=== PATIENT | male | born 1995 | race Caucasian/White ===

== ENCOUNTER 2017-02-23 00:22 | Inpatient (IN) | payer MEDICAID ==
[2017-02-23] MEDS ORDERED: NS 0.9% 1000 ML* 1,000 ML IV ONE (00:42)
[2017-02-23] MEDS ORDERED: Naloxone* 0.4 MG/ML 1 ML VIAL IV PUSH ONE ×3 (00:46→01:24)
[2017-02-23] MEDS ORDERED: Naloxone* 0.4 MG/ML 10 ML VIAL ONE (01:08)
[2017-02-23 01:09] LABS: Hematocrit 37 % (42-52); Hemoglobin 11.9 g/dl (14.0-18.0); Mean Corpuscular HGB Conc 32 g/dl (31-36); Mean Corpuscular Hemoglobin 27 pg (27-31); Mean Corpuscular Volume 83 fL (80-94); Mean Platelet Volume 8 um3 (7.4-10.4); Red Blood Count 4.43 10^6/ul (4.0-5.4); Red Cell Distribution Width 15 % (10.5-15); White Blood Count 12.1 10^3/ul (3.5-10.8)
[2017-02-23 01:30] LABS: ALT 12 U/L (7-52); AST 19 U/L (13-39); Acetaminophen < 15 mcg/mL; Albumin 4.6 g/dL (3.2-5.2); Alcohol < 10 mg/dL (<10); Alkaline Phosphatase 67 U/L (34-104); Anion Gap 10 mmol/L (2-11); BUN/Creatinine Ratio 9.9 (8-20); Blood Urea Nitrogen 7 mg/dL (6-24); CO2 Carbon Dioxide 27 mmol/L (22-32); Calcium 9.5 mg/dL (8.6-10.3); Chloride 105 mmol/L (101-111); Creatine Kinase 501 U/L (10-223); EGFR African American 183.8 (>60); EGFR Non-African American 142.9 (>60); Globulin 2.7 g/dL (2-4); Glucose 70 mg/dL (70-100); Potassium 3.6 mmol/L (3.5-5.0); Salicylate < 2.50 mg/dL (<30); Sodium 142 mmol/L (133-145); Total Protein 7.3 g/dL (6.4-8.9)
[2017-02-23 01:56] LABS: Urine Bilirubin Negative (Negative); Urine Glucose Negative (Negative); Urine Nitrite Negative (Negative)
[2017-02-23] MEDS ORDERED: Naloxone* 2 MG in NS 0.9% 250 ML* 245 ML IV SCH (02:00)
[2017-02-23 02:10] LABS: Benzodiazepine Urine Screen None Detected (None Detect)
[2017-02-23] MEDS ORDERED: Iodixanol* (CONTRAST) 320 MG/ML 100 ML SDV IV ONE (02:29)
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
[2017-02-23] MEDS ORDERED: Acetaminophen TAB* 325 MG PO PRN (03:24)
[2017-02-23] MEDS: Omeprazole CAP* 20 MG PO SCH (05:32)
[2017-02-23] MEDS: Levothyroxine TAB* 125 MCG TAB PO SCH (05:32)
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
[2017-02-23] MEDS: NS 0.9% 1000 ML* 1,000 ML IV SCH ×2 (05:39→15:06)
[2017-02-23] MEDS: Albuterol HFA INHALER* 8 gm MDI INH PRN (06:20)
[2017-02-23] MEDS ORDERED: LORazepam INJ* 2 MG/ML 1 ML VIAL IV PUSH PRN (06:28)
[2017-02-23] MEDS ORDERED: LORazepam INJ* 2 MG/ML 1 ML VIAL IV PUSH ONE (06:30)
[2017-02-23] MEDS ORDERED: LORazepam INJ* 2 MG/ML 1 ML VIAL ONE (06:34)
--- NOTE | 2017-02-23 07:49 | RAD ---
INDICATION: Overdose COMPARISON: None. TECHNIQUE: Single AP portable view of the chest was obtained. FINDINGS: Image quality is compromised due to the relative inferiority of a portable chest x-ray. The heart and mediastinum exhibit normal size and contour. The lungs are grossly clear. There is no evidence of a large pleural effusion. Visualized bones are normal for the patient's age. IMPRESSION: No radiographic evidence for acute cardiopulmonary abnormality on this portable chest x-ray.
--- NOTE | 2017-02-23 07:50 | RAD ---
INDICATION: Altered mental status COMPARISON: Similar CT examination dated February 21, 2017 TECHNIQUE: Contiguous axial sections of the brain were obtained from the skull base to the vertex without contrast. FINDINGS: The ventricles, cisterns and sulci are within normal limits. The morales-white matter differentiation is adequately maintained and there is no sulcal effacement. No significant focal abnormality or mass effect is present. There is no evidence for intracranial hemorrhage. No significant focal osseous abnormality is present. The mastoid air cells are well aerated. There is mild mucosal thickening of the bilateral ethmoid air cells. IMPRESSION: Mild paranasal sinus mucosal disease without acute intracranial abnormality.
--- NOTE | 2017-02-23 07:56 | RAD ---
INDICATION: Right lower quadrant pain. Overdose. COMPARISON: CT chest/abdomen/pelvis February 21, 2017 TECHNIQUE: Axial source images were obtained from the hemidiaphragms to the symphysis pubis following administration of oral and intravenous contrast. 100 mL Visipaque 320 was utilized. Coronal and sagittal reconstructed images were acquired. Lung bases: The lung bases are clear. Liver: There is mild hepatomegaly. There are no masses.. Gallbladder: The gallbladder is contracted. Spleen: The spleen is normal in size. There are no masses. Pancreas: There is no focal pancreatic mass or ductal dilatation. Adrenal glands: There is no evidence of adrenal mass. Kidneys: The kidneys are normal in size and position. There are prompt nephrograms and there is prompt excretion bilaterally. There are no renal parenchymal masses. There is no evidence of nephrolithiasis. Adenopathy: There is no evidence of adenopathy by size criteria. Fluid collections: There is a small amount of free fluid in the dependent portion of the pelvis. Vessels:There are no significant atherosclerotic changes involving the aorta. There is no focal aneurysm. The iliac vessels are normal in caliber. The IVC appears normal. GI tract: The bowel is limited without oral contrast. The upper GI tract is unremarkable. There are no specific CT abnormalities lower GI tract. The appendix is normal. Pelvic organs: The prostate and seminal vesicles appear normal Bladder: There are no bladder masses. Abdominal and pelvic soft tissues: The extraperitoneal abdominal and pelvic soft tissues appear normal.. Osseous structures: There are no acute osseous findings. Other: None IMPRESSION: SMALL AMOUNT OF FREE FLUID IN THE DEPENDENT PORTION OF THE PELVIS REPRESENTS A NONSPECIFIC CT ABNORMALITY IN A YOUNG MALE. Mild hepatomegaly.
[2017-02-23] MEDS ORDERED: Influenza VAC *QUAD* 2017-18* 0.5 ML SYRINGE IM ONE (09:00)
[2017-02-23 09:42] LABS: Hematocrit 32 % (42-52); Hemoglobin 10.7 g/dl (14.0-18.0); Mean Corpuscular HGB Conc 33 g/dl (31-36); Mean Corpuscular Hemoglobin 27 pg (27-31); Mean Corpuscular Volume 81 fL (80-94); Mean Platelet Volume 9 um3 (7.4-10.4); Red Blood Count 3.98 10^6/ul (4.0-5.4); Red Cell Distribution Width 14 % (10.5-15); White Blood Count 9.8 10^3/ul (3.5-10.8)
[2017-02-23 10:05] LABS: Albumin 3.8 g/dL (3.2-5.2); BUN/Creatinine Ratio 9.7 (8-20); Calcium 8.8 mg/dL (8.6-10.3); EGFR African American 214.9 (>60); EGFR Non-African American 167.1 (>60); Globulin 2.2 g/dL (2-4); Potassium 3.6 mmol/L (3.5-5.0); Total Bilirubin 0.4 mg/dL (0.2-1.0)
[2017-02-23] MEDS: Divalproex DR TAB(*) 500 MG PO SCH ×2 (11:42→19:24)
--- NOTE | 2017-02-23 17:08 | PN ---
Subjective Date of Service: 02/23/17 Interval History: Patient is significantly sedated and unable to be interviewed in the morning. More alert in the afternoon, still confused and lethargic. Not oriented to time , but does know who he is and that he is in the hospital. Gives contradictory answers, stating he uses heroin twice daily, that he overdosed on his pills again, but then denies it. States he is too hot and is sweating profusely. Patient complains of a sore throat without other symptoms. Patient endorses sick contacts but states that "everyone around me is sick" Family History: Unchanged from Admission Social History: Unchanged from Admission Past Medical History: Unchanged from Admission Objective Active Medications: Acetaminophen (Tylenol Tab*) 650 mg PO Q4H PRN PRN Reason: FEVER/PAIN Albuterol (Ventolin Hfa Inhaler*) 2 puff INH Q4H PRN PRN Reason: SOB/WHEEZING Last Admin: 02/23/17 06:20 Dose: 2 puff Divalproex Sodium (Depakote Dr Tab(*)) 500 mg PO Q12HR [facility] Last Admin: 02/23/17 11:42 Dose: 500 mg Sodium Chloride (Ns 0.9% 1000 Ml*) 1,000 mls @ 100 mls/hr IV PER RATE [facility] Last Admin: 02/23/17 15:06 Dose: 100 mls/hr Levothyroxine Sodium (Synthroid Tab*) 125 mcg PO DAILY@0600 [facility] Last Admin: 02/23/17 05:32 Dose: 125 mcg Lorazepam (Ativan Inj*) 1 mg IV PUSH Q6H PRN PRN Reason: ANXIETY Omeprazole (Prilosec Cap*) 20 mg PO DAILY@0600 [facility] Last Admin: 02/23/17 05:32 Dose: 20 mg Throat Lozenges (Chloraseptic Corinna*) 1 corinna PO Q6H PRN PRN Reason: SORE THROAT Vital Signs 02/23/17 02/23/17 02/23/17 03:30 04:00 06:17 Temperature 98.2 F Pulse Rate 99 99 92 Respiratory 18 Rate Blood Pressure 121/73 117/96 145/84 (mmHg) O2 Sat by Pulse 100 98 98 Oximetry 02/23/17 02/23/17 02/23/17 06:25 06:30 06:33 Temperature Pulse Rate 118 122 Respiratory 32 20 Rate Blood Pressure 165/80 (mmHg) O2 Sat by Pulse 100 100 Oximetry 02/23/17 02/23/17 02/23/17 07:25 08:00 08:09 Temperature 100.9 F Pulse Rate 121 Respiratory 18 20 16 Rate Blood Pressure 132/88 (mmHg) O2 Sat by Pulse 98 Oximetry 02/23/17 02/23/17 12:09 15:24 Temperature 99.4 F 100.1 F Pulse Rate 98 107 Respiratory 20 20 Rate Blood Pressure 104/43 111/51 (mmHg) O2 Sat by Pulse 99 99 Oximetry Oxygen Devices in Use Now: None Appearance: Patient is a 21yo male who appears stated age and is slumped in the bed in NAD. Eyes: No Scleral Icterus, PERRLA Ears/Nose/Mouth/Throat: NL Teeth, Lips, Gums Neck: NL Appearance and Movements; NL JVP, Trachea Midline Respiratory: Symmetrical Chest Expansion and Respiratory Effort, Clear to Auscultation Cardiovascular: NL Sounds; No Murmurs; No JVD, No Edema, - - Tachycardic, regular. Abdominal: NL Sounds; No Tenderness; No Distention, No Hepatosplenomegaly Lymphatic: No Cervical Adenopathy Extremities: No Edema Skin: No Rash or Ulcers, No Nodules or Sclerosis Neurological: - - CN II-XII intact. Result Diagrams: 02/23/17 09:16 02/23/17 09:16 Additional Lab and Data: Lab Results Assess/Plan/Problems-Billing Assessment: Patient is a 21yo male with a PHM significant for TBI with skull plate and developmental delay, hypothyroidism, Asthma, Seizure disorder, Schizophrenia, ADHD and Bipolar disorder who presented unresponsive to the ED last night. Patient is a poor and unreliable historian but states that he took many medications and used multiple illicit drugs that he tested negative for. - Patient Problems (1) Altered mental status Current Visit: Yes Status: Acute Code(s): R41.82 - ALTERED MENTAL STATUS, UNSPECIFIED SNOMED Code(s): 564891821 Comment: Patient's mental status has improved but was given ativan overnight for an apparent anxiety attack and was given ativan which sedated him again. Patient's mental status improved throughout the day and he continued to be confused in the afternoon but was more alert and cooperative. Will continue to monitor. Patient became more tachycardic and febrile through the morning with significantly depressed mental status. Concern for NMS but decreased CK and no rigidity. Olanzapine level pending. May be due to URI as patient also has a sore throat. (2) Mood disorder Current Visit: No Status: Acute Priority: High Onset Date: 05/05/15 Comment: Continue depakote for mood stabilization and seizure prophylaxis. Hold Zyprexa and zoloft pending mental status normalization. Psychiatry consulted for recommendations for fdc car and short term medications to prevent self injurious behavior and functioning in the community. (3) Hypothyroidism Current Visit: No Status: Acute Code(s): E03.9 - HYPOTHYROIDISM, UNSPECIFIED SNOMED Code(s): 62305897 Comment: Increased TSH, likely due to patient not taking medication. Would recommend rechecking in 4-6 weeks. (4) Polysubstance overdose Current Visit: No Status: Acute Code(s): T50.901A - POISONING BY UNSP DRUG/ MEDS/BIOL SUBST, ACCIDENTAL, INIT SNOMED Code(s): 53527725 Comment: Patient endorses multiple substance abuse, but tests negative for illicit drugs and valproic acid level is 17. No signs of IV drug use on skin. Blood cultures drawn for possible bacteremia. No suicidal ideation at endorsed at this time. (5) Seizure disorder Current Visit: No Status: Acute Code(s): G40.909 - EPILEPSY, UNSP, NOT INTRACTABLE, WITHOUT STATUS EPILEPTICUS SNOMED Code(s): 261212630 Comment: Continue depakote, EEG results pending. Depakote level 17 which is significantly below therapeutic range. (6) DVT prophylaxis Current Visit: No Status: Acute Code(s): DTS9933 - SNOMED Code(s): 133748988 Comment: Low risk ambulation (7) Full code status Current Visit: No Status: Acute Code(s): Z78.9 - OTHER SPECIFIED HEALTH STATUS SNOMED Code(s): 715217629 Status and Disposition: Patient is admitted inpatient. LOS estimated at 1-2 days.
[2017-02-23] MEDS: Acetaminophen TAB* 325 MG PO PRN (19:23)
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
[2017-02-23] MEDS: Benzocaine/Menthol LOZ* 1 LOZENGE PO PRN (22:29)
[2017-02-24] MEDS: NS 0.9% 1000 ML* 1,000 ML IV SCH ×3 (01:16→20:43)
[2017-02-24] MEDS: Omeprazole CAP* 20 MG PO SCH (05:08)
[2017-02-24] MEDS: Levothyroxine TAB* 125 MCG TAB PO SCH (05:08)
[2017-02-24] MEDS: Benzocaine/Menthol LOZ* 1 LOZENGE PO PRN (06:20)
[2017-02-24 06:54] LABS: Albumin 3.2 g/dL (3.2-5.2); BUN/Creatinine Ratio 16.4 (8-20); Calcium 8.3 mg/dL (8.6-10.3); EGFR Non-African American 170.3 (>60); Globulin 1.9 g/dL (2-4); Potassium 3.9 mmol/L (3.5-5.0); Total Bilirubin 0.2 mg/dL (0.2-1.0); Total Protein 5.1 g/dL (6.4-8.9)
[2017-02-24] MEDS: Divalproex DR TAB(*) 500 MG PO SCH (08:15)
[2017-02-24 08:27] LABS: Hematocrit 32 % (42-52); Hemoglobin 10.7 g/dl (14.0-18.0); Mean Corpuscular HGB Conc 33 g/dl (31-36); Mean Corpuscular Hemoglobin 27 pg (27-31); Mean Corpuscular Volume 81 fL (80-94); Mean Platelet Volume 8 um3 (7.4-10.4); Red Blood Count 3.98 10^6/ul (4.0-5.4); Red Cell Distribution Width 14 % (10.5-15); White Blood Count 9.1 10^3/ul (3.5-10.8)
[2017-02-24] MEDS ORDERED: LORazepam INJ* 2 MG/ML 1 ML VIAL ONE ×3 (13:12→13:23)
[2017-02-24] MEDS ORDERED: Haloperidol INJ IV/IM* 5 MG/ML AMP ONE (13:13)
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
[2017-02-24 15:05] LABS: Magnesium 1.7 mg/dL (1.9-2.7)
[2017-02-24] MEDS ORDERED: Magnesium Sulfate 2 GM IV* 2 GM/50 ML BAG IVPB ONE (15:30)
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
[2017-02-24] MEDS: LORazepam INJ* 2 MG/ML 1 ML VIAL IV PUSH PRN (21:44)
--- NOTE | 2017-02-25 02:54 | EEG ---
ELECTROENCEPHALOGRAM REPORT: DATE OF STUDY: 02/24/17 LOCATION: He is inpatient in [facility]. REFERRING PROVIDER: Pepito Carrillo MD CLINICAL HISTORY: History of traumatic brain injury, the patient was brought in unresponsive after a possible drug abuse. There is a history of seizure disorder and schizophrenia. MEDICATIONS: Include Depakote, lorazepam, Narcan. EEG DESCRIPTION: This 16-channel EEG is remarkable for background rhythms consisting of vertex sharp activity and parasagittal sleep spindles, which are better formed on the right hemisphere than the left. The patient is asleep, but wakes with attenuation of stage 2 sleep features and low voltage fast activity seen bifrontally. At times, there is an alpha rhythm posteriorly at about 9 cycles per second, which is of low abundance. Most of the time, the patient drowses and sleeps during the recording. Activation procedures are not attempted. There are no focal or epileptiform discharges. INTERPRETATION: Asymmetrical sleep rhythms with perhaps better formed stage 2 sleep waveforms in the right hemisphere, but no epileptiform discharges or other significant abnormalities. [id number]/[facility] #: [id number] CORY
--- NOTE | 2017-02-25 04:59 | EEG ---
ELECTROENCEPHALOGRAM REPORT: DATE OF STUDY: 02/24/17 LOCATION: He is in ICU bed 5. REFERRING PROVIDER: EDUARDO Pyle CHIEF COMPLAINT: History of head injury, psychosis, possibly epilepsy. Recent agitation and possible seizure. MEDICATIONS: Include: 1. Lorazepam. 2. Haloperidol. 3. Keppra. 4. Depakote. 5. Synthroid. EEG DESCRIPTION: This 16-channel EEG is remarkable for background rhythms consisting of an 8 cycles per second posterior alpha rhythm which is symmetric and suppressed by eye opening. The patient drowses and falls asleep easily following into stage 2 sleep with parasagittal sleep spindles and vertex sharp waves. The patient sleeps for the majority of the recording, but is awaken intermittently by the distribution field technician. There are no focal, lateralized, or epileptiform abnormalities. INTERPRETATION: Normal awake and a sleep EEG. [id number]/[facility] [place] #: [id number] MTDTay
[2017-02-25 05:51] LABS: Hematocrit 33 % (42-52); Hemoglobin 10.7 g/dl (14.0-18.0); Mean Corpuscular HGB Conc 33 g/dl (31-36); Mean Corpuscular Hemoglobin 27 pg (27-31); Mean Corpuscular Volume 81 fL (80-94); Mean Platelet Volume 8 um3 (7.4-10.4); Red Blood Count 4.02 10^6/ul (4.0-5.4); Red Cell Distribution Width 14 % (10.5-15); White Blood Count 8.6 10^3/ul (3.5-10.8)
[2017-02-25 06:06] LABS: Albumin 3.3 g/dL (3.2-5.2); BUN/Creatinine Ratio 15.5 (8-20); Calcium 8.4 mg/dL (8.6-10.3); EGFR African American 232.1 (>60); EGFR Non-African American 180.5 (>60); Globulin 2.3 g/dL (2-4); Potassium 3.6 mmol/L (3.5-5.0); Total Bilirubin 0.3 mg/dL (0.2-1.0); Total Protein 5.6 g/dL (6.4-8.9)
[2017-02-25] MEDS: Omeprazole CAP* 20 MG PO SCH (06:14)
[2017-02-25] MEDS: Levothyroxine TAB* 125 MCG TAB PO SCH (06:14)
[2017-02-25] MEDS: NS 0.9% 1000 ML* 1,000 ML IV SCH (06:25)
[2017-02-25] MEDS ORDERED: OLANzapine TAB*ODT* 5 MG PO SCH (09:00)
[2017-02-25] MEDS ORDERED: Potassium Chlor TAB* 20 MEQ TAB.ER PO ONE (09:01)
[2017-02-25 09:21] LABS: Magnesium 1.8 mg/dL (1.9-2.7)
[2017-02-25] MEDS ORDERED: Magnesium Sulfate 2 GM IV* 2 GM/50 ML BAG IVPB ONE (09:27)
[2017-02-25 15:47] LABS: HIV Index 1 0.11 Index
[2017-02-25] MEDS ORDERED: Mouth Piece, Nicotine* 1 EACH CARTRIDGE INH PRN (17:01)
[2017-02-25] MEDS ORDERED: Nicotine Inhaler* 10 MG AMP INH PRN (17:01)
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
[2017-02-25] MEDS: risperiDONE TAB* 2 MG PO SCH (18:00)
[2017-02-25] MEDS: Albuterol HFA INHALER* 8 gm MDI INH PRN (21:17)
[2017-02-25] MEDS: Mometasone/Formoter 100/5 MDI INH SCH (22:16)
[2017-02-25] MEDS: LORazepam INJ* 2 MG/ML 1 ML VIAL IV PUSH PRN (22:35)
[2017-02-26] MEDS: Albuterol HFA INHALER* 8 gm MDI INH PRN ×3 (01:27→19:46)
[2017-02-26 05:17] LABS: Hematocrit 33 % (42-52); Hemoglobin 10.8 g/dl (14.0-18.0); Mean Corpuscular HGB Conc 33 g/dl (31-36); Mean Corpuscular Hemoglobin 27 pg (27-31); Mean Corpuscular Volume 81 fL (80-94); Mean Platelet Volume 8 um3 (7.4-10.4); Red Blood Count 4.08 10^6/ul (4.0-5.4); Red Cell Distribution Width 14 % (10.5-15); White Blood Count 8.3 10^3/ul (3.5-10.8)
[2017-02-26 05:32] LABS: Albumin 3.5 g/dL (3.2-5.2); BUN/Creatinine Ratio 13.8 (8-20); Calcium 8.8 mg/dL (8.6-10.3); EGFR African American 203.5 (>60); EGFR Non-African American 158.3 (>60); Globulin 2.5 g/dL (2-4); Potassium 3.7 mmol/L (3.5-5.0); Total Bilirubin 0.2 mg/dL (0.2-1.0)
[2017-02-26] MEDS: Levothyroxine TAB* 125 MCG TAB PO SCH (06:12)
[2017-02-26] MEDS: Omeprazole CAP* 20 MG PO SCH (06:12)
[2017-02-26 07:37] LABS: Magnesium 1.7 mg/dL (1.9-2.7)
[2017-02-26] MEDS: Mometasone/Formoter 100/5 MDI INH SCH ×2 (08:29→19:47)
[2017-02-26] MEDS ORDERED: Magnesium Sulfate 2 GM IV* 2 GM/50 ML BAG IVPB ONE (10:25)
[2017-02-26] MEDS: Magnesium Chloride EC TAB* 64 MG PO SCH (13:53)
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
[2017-02-26] MEDS: risperiDONE TAB* 2 MG PO SCH (17:53)
[2017-02-26] MEDS: Haloperidol INJ IV/IM* 5 MG/ML AMP IM PRN (21:49)
[2017-02-27] MEDS: Omeprazole CAP* 20 MG PO SCH (04:52)
[2017-02-27] MEDS: Levothyroxine TAB* 125 MCG TAB PO SCH (04:52)
[2017-02-27] MEDS: Acetaminophen TAB* 325 MG PO PRN (04:52)
[2017-02-27] MEDS: Mometasone/Formoter 100/5 MDI INH SCH ×2 (07:50→21:20)
[2017-02-27] MEDS: Magnesium Chloride EC TAB* 64 MG PO SCH (08:40)
[2017-02-27] MEDS: Benzocaine/Menthol LOZ* 1 LOZENGE PO PRN (11:04)
[2017-02-27] MEDS ORDERED: Nicotine PATCH 21 MG/24 HR* PATCH TRANSDERM SCH (14:00)
--- NOTE | 2017-02-27 15:23 | PN ---
Subjective - Subjective Service Type: 33051 Hosp care 15 min low complexity Subjective: Saw patient on bed side. He continues to report that he is seeing things, hearing voices but unwilling to talk about any details including what when etc. He says all scary staffs with inappropriate smile. Denies SI/HI. Wants to know when he was coming to the [facility]. Pacing around talking to nursing staffs. Doesn't appear to be in any distress. Objective - Appearance Appearance: Healthy Appearing Dysmorphic Features: No Hygiene: Normal Grooming: Fairly Well Kept - Behavior Psychomotor Activities: Abnormal-Increased Exhibits Abnormal Movement: No - Attitude and Relatedness Attitude and Relatedness: Manipulative Eye Contact: Fair - Speech Quality: Unpressured Latencies: Normal Quantity: Terse - Mood Patient's Decription of Mood: "Fine" - Affect Observed Affect: Non-labile - Thought Process Patient's Thought Process: Circumstantial Thought Content: No Passive Wish, No Suicidal Planning, No Homicidal Ideation, No Paranoid Ideation - Sensorium Experiencing Hallucinations: Yes Type of Hallucinations: Visual: Yes, Auditory: Yes, Command: No - Level of Consciousness Level of Consciousness: Alert Orientation: Yes Intact, Yes Orientated to Time, Yes Orientated to Place, Yes Orientated to Person - Impulse Control Impulse Control: Tenuous - Insight and Judgement Insight and Judgement: Poor - Group Participation Particating in Group Activities: No - Medication Management Medication Management Adherence: Yes Assessment - Assessment Merits Inpatient Hospitalization: For Ongoing Evaluation, Pending Safe DC Plan Inpatient DSM-IV Dx: Impulse Control DO NOS Plan - Plan Treatment Plan: Name: SHERON HADDAD Birthdate: 1995 [id number] Medications: Current Medications Acetaminophen (Tylenol Tab*) 650 mg PO Q4H PRN PRN Reason: FEVER/PAIN Last Admin: 02/27/17 04:52 Dose: 650 mg Albuterol (Ventolin Hfa Inhaler*) 2 puff INH Q4H PRN PRN Reason: SOB/WHEEZING Last Admin: 02/26/17 19:46 Dose: 2 puff Device (Nicotine Mouth Piece*) 1 each INH .USE WITH NICOTROL PRN PRN Reason: CRAVING Last Admin: 02/25/17 20:09 Dose: 1 each Haloperidol Lactate (Haldol Inj Iv/Im*) 5 mg IM Q6H PRN PRN Reason: AGITATION Last Admin: 02/26/17 21:49 Dose: 5 mg Levothyroxine Sodium (Synthroid Tab*) 125 mcg PO DAILY@0600 [facility] Last Admin: 02/27/17 04:52 Dose: 125 mcg Lorazepam (Ativan Inj*) 1 mg IV PUSH Q6H PRN PRN Reason: AGITATION/ANXIETY Last Admin: 02/25/17 22:35 Dose: 1 mg Magnesium Chloride (Slow Mag Ec Tab*) 64 mg PO DAILY [facility] Last Admin: 02/27/17 08:40 Dose: 64 mg Mometasone Furoate/Formoterol Fumar (Dulera 100/5 Mdi*) 2 puff INH BID [facility] Last Admin: 02/27/17 07:50 Dose: 2 puff Nicotine (Nicotine Inhaler*) 10 mg INH Q2H PRN PRN Reason: CRAVING Last Admin: 02/25/17 20:10 Dose: 10 mg Nicotine (Nicotine Patch 21 Mg/24 Hr*) 1 patch TRANSDERM DAILY [facility] Last Admin: 02/27/17 14:49 Dose: 1 patch Omeprazole (Prilosec Cap*) 20 mg PO DAILY@0600 [facility] Last Admin: 02/27/17 04:52 Dose: 20 mg Pharmacy Profile Note (Nicotine Patch Removal Note*) 1 note FOLLOW UP 0600 [facility] Risperidone (Risperdal*) 2 mg PO QPM [facility] Last Admin: 02/26/17 17:53 Dose: 2 mg Throat Lozenges (Chloraseptic Corinna*) 1 corinna PO Q6H PRN PRN Reason: SORE THROAT Last Admin: 02/27/17 11:04 Dose: 1 corinna - Discharge Plan Discharge Plan: Outpatient Follow Up Outpatient Program: TBD
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
[2017-02-27] MEDS: Nicotine GUM* 2 MG PO PRN (20:06)
[2017-02-27] MEDS: risperiDONE TAB* 2 MG PO SCH (20:06)
[2017-02-27] MEDS: Albuterol HFA INHALER* 8 gm MDI INH PRN (21:21)
[2017-02-28] MEDS: Nicotine GUM* 2 MG PO PRN (00:11)
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
[2017-02-28] MEDS: Omeprazole CAP* 20 MG PO SCH (05:44)
[2017-02-28] MEDS: Levothyroxine TAB* 125 MCG TAB PO SCH (05:44)
[2017-02-28] MEDS ORDERED: Nicotine Patch Removal NOTE FOLLOW UP SCH (06:00)
[2017-02-28] MEDS: Mometasone/Formoter 100/5 MDI INH SCH ×2 (07:46→19:56)
[2017-02-28 09:42] LABS: Calcium 9.5 mg/dL (8.6-10.3); EGFR African American 186.8 (>60); EGFR Non-African American 145.3 (>60); Magnesium 1.7 mg/dL (1.9-2.7)
[2017-02-28] MEDS ORDERED: Magnesium Oxide TAB* 400 MG PO ONE (10:15)
[2017-02-28] MEDS: Magnesium Chloride EC TAB* 64 MG PO SCH (10:43)
[2017-02-28] MEDS ORDERED: LORazepam TAB(*) 1 MG PO PRN (11:12)
[2017-02-28] MEDS ORDERED: Paliperidone SUSTENNA* 234 MG/1.5 ML IM ONE (15:21)
--- NOTE | 2017-02-28 15:34 | CONSULT ---
Identification - Patient Identification Reason for Psychiatric Consultation: Suicidal Ideation, Homicidal Ideation, Violent Behavior -: Patient is a 21 year old, M admitted on 02/24/17. - MHU Identification Employment Status: Disabled Hx Psychiatric Hospitalization: Yes History - Objective HPI: Michael is in good spirits when I enter his room. He is watching a cartoon movie and laughing. He denies SI or HI but states "I still need to come down with you on the second floor because of all the things I'm seeing and hearing. They're people and they tell me to do bad things." His affect is not congruent with these statements. This clinician spoke both with the web content & social media manager on the service, Joseline Garay, and Cindi Magana, Director of Clinical Resource Management about placement options. A SPOE application has been filed, but there is no certainty about how long a supported apartment or snf would take to materialize. In the meantime, Michael is tolerating risperidone therapy well and is agreeable with long-acting injectable antipsychotic medication. Lab Results: Laboratory Tests 02/24/17 02/24/17 02/24/17 08:13 08:13 08:13 WBC 9.1 RBC 3.98 L Hgb 10.7 L Hct 32 L MCV 81 MCH 27 MCHC 33 RDW 14 Plt Count 155 MPV 8 Neut % (Auto) 63.0 Lymph % (Auto) 21.7 L Wallace % (Auto) 12.5 H Eos % (Auto) 2.2 Baso % (Auto) 0.6 Absolute Neuts (auto) 5.7 Absolute Lymphs (auto) 2.0 Absolute Monos (auto) 1.1 H Absolute Eos (auto) 0.2 Absolute Basos (auto) 0.1 Absolute Nucleated RBC 0 Nucleated RBC % 0 Sodium Potassium Chloride Carbon Dioxide Anion Gap BUN Creatinine Est GFR ( Amer) Est GFR (Non-Af Amer) BUN/Creatinine Ratio Glucose Calcium Magnesium Total Bilirubin AST ALT Alkaline Phosphatase Ammonia 97 H Total Protein Albumin Globulin Albumin/Globulin Ratio Valproic Acid Hep B Core Total Ab Hepatitis C Antibody Nonreactive HIV 1&2 Antibody Nonreactive 02/24/17 02/24/17 02/25/17 08:13 14:35 05:34 WBC RBC Hgb Hct MCV MCH MCHC RDW Plt Count MPV Neut % (Auto) Lymph % (Auto) Wallace % (Auto) Eos % (Auto) Baso % (Auto) Absolute Neuts (auto) Absolute Lymphs (auto) Absolute Monos (auto) Absolute Eos (auto) Absolute Basos (auto) Absolute Nucleated RBC Nucleated RBC % Sodium Potassium Chloride Carbon Dioxide Anion Gap BUN Creatinine Est GFR ( Amer) Est GFR (Non-Af Amer) BUN/Creatinine Ratio Glucose Calcium Magnesium 1.7 L Total Bilirubin AST ALT Alkaline Phosphatase Ammonia 106 H Total Protein Albumin Globulin Albumin/Globulin Ratio Valproic Acid 65.0 Hep B Core Total Ab Negative Hepatitis C Antibody HIV 1&2 Antibody 02/25/17 02/25/17 02/26/17 05:34 05:34 05:06 WBC 8.6 8.3 RBC 4.02 4.08 Hgb 10.7 L 10.8 L Hct 33 L 33 L MCV 81 81 MCH 27 27 MCHC 33 33 RDW 14 14 Plt Count 164 202 MPV 8 8 Neut % (Auto) 65.6 51.8 Lymph % (Auto) 21.1 L 35.1 Wallace % (Auto) 10.1 H 9.4 H Eos % (Auto) 2.7 2.9 Baso % (Auto) 0.5 0.8 Absolute Neuts (auto) 5.6 4.3 Absolute Lymphs (auto) 1.8 2.9 Absolute Monos (auto) 0.9 H 0.8 Absolute Eos (auto) 0.2 0.2 Absolute Basos (auto) 0 0.1 Absolute Nucleated RBC 0.01 0 Nucleated RBC % 0.1 0 Sodium 138 Potassium 3.6 Chloride 107 Carbon Dioxide 27 Anion Gap 4 BUN 9 Creatinine 0.58 L Est GFR ( Amer) 232.1 Est GFR (Non-Af Amer) 180.5 BUN/Creatinine Ratio 15.5 Glucose 91 Calcium 8.4 L Magnesium 1.8 L Total Bilirubin 0.30 AST 17 ALT 12 Alkaline Phosphatase 39 Ammonia Total Protein 5.6 L Albumin 3.3 Globulin 2.3 Albumin/Globulin Ratio 1.4 Valproic Acid Hep B Core Total Ab Hepatitis C Antibody HIV 1&2 Antibody 02/26/17 02/26/17 02/27/17 05:06 05:06 05:49 WBC RBC Hgb Hct MCV MCH MCHC RDW Plt Count MPV Neut % (Auto) Lymph % (Auto) Wallace % (Auto) Eos % (Auto) Baso % (Auto) Absolute Neuts (auto) Absolute Lymphs (auto) Absolute Monos (auto) Absolute Eos (auto) Absolute Basos (auto) Absolute Nucleated RBC Nucleated RBC % Sodium 138 Potassium 3.7 Chloride 104 Carbon Dioxide 27 Anion Gap 7 BUN 9 Creatinine 0.65 L Est GFR ( Amer) 203.5 Est GFR (Non-Af Amer) 158.3 BUN/Creatinine Ratio 13.8 Glucose 92 Calcium 8.8 Magnesium 1.7 L 1.6 L Total Bilirubin 0.20 AST 16 ALT 12 Alkaline Phosphatase 56 Ammonia 71 H Total Protein 6.0 L Albumin 3.5 Globulin 2.5 Albumin/Globulin Ratio 1.4 Valproic Acid Hep B Core Total Ab Hepatitis C Antibody HIV 1&2 Antibody 02/27/17 02/28/17 05:49 09:16 WBC RBC Hgb Hct MCV MCH MCHC RDW Plt Count MPV Neut % (Auto) Lymph % (Auto) Wallace % (Auto) Eos % (Auto) Baso % (Auto) Absolute Neuts (auto) Absolute Lymphs (auto) Absolute Monos (auto) Absolute Eos (auto) Absolute Basos (auto) Absolute Nucleated RBC Nucleated RBC % Sodium 136 Potassium 4.0 Chloride 102 Carbon Dioxide 28 Anion Gap 6 BUN 14 Creatinine 0.70 Est GFR ( Amer) 186.8 Est GFR (Non-Af Amer) 145.3 BUN/Creatinine Ratio 20.0 Glucose 93 Calcium 9.5 Magnesium 1.7 L Total Bilirubin AST ALT Alkaline Phosphatase Ammonia 67 H Total Protein Albumin Globulin Albumin/Globulin Ratio Valproic Acid Hep B Core Total Ab Hepatitis C Antibody HIV 1&2 Antibody Exam Appearance: Healthy Appearing Hygiene: Normal Grooming: Fairly Well Kept Psychomotor Activities: Abnormal-Increased Exhibits Abnormal Movement: No Attitude and Relatedness: Manipulative Eye Contact: Fair - Speech Quality: Unpressured Latencies: Normal Quantity: Terse Patient's Decription of Mood: "Fine" Observed Affect: Non-labile Affect Consistent with: Euthymia Patient's Thought Process: Circumstantial Thought Content: No Passive Wish, No Suicidal Planning, No Homicidal Ideation, No Paranoid Ideation Experiencing Hallucinations: Yes Type of Hallucinations: Visual: Yes, Auditory: Yes, Command: No Level of Consciousness: Alert Orientation: Yes Intact, Yes Orientated to Time, Yes Orientated to Place, Yes Orientated to Person Impulse Control: Tenuous Insight and Judgement: Poor Impression - Impression Clinical Impression: 21 y.o. single, homeless male, recently released from incarceration at [facility] (02/18/17) with a history of developmental delay, TBI, impulse control problems, putative schizophrenia and bipolar conditions and substance abuse, as well as factitious disorder who is now admitted to the medical service for the second time in 3 days due to intentional overdose on unspecified medications. Although he denied all psychiatric symptoms as recently as the first february, he is now endorsing SI, HI, AH and VH, is making threatening statements to staff and seems invested in being admitted to the BSU for likely secondary gain. Merits Inpatient Hospitalization: No Problem List - MHU Problems Type of Problem: Impulse Control Status of Problem: Active Plan - Treatment Plan Treatment Plan: The patient represents numerous behavioral and dispositional problems to the team. He is homeless and lacks an readily achievable placement options. Given his intellectual problems, he is inappropriate for BSU care as he would not benefit from milieu programming. His impulsivity warrants med management, however, he already more than proven his inability to handle oral medications safely. Long acting injectable neuroleptic therapy would be helpful. He has started a trial of oral risperidone, of which paliperidone is a metabolite. We will start a trial of paliperidone Sustenna 234mg IM times one. If well- tolerated, he can receive a booster dose as early as this Tuesday (03/04). For now, we will keep him on 1:1 obs, although I don't believe him to necessarily be dangerous to anyone. Psychiatry will continue to follow. Continued Medication Management: Start Medication Medications: Current Medications Acetaminophen (Tylenol Tab*) 650 mg PO Q4H PRN PRN Reason: FEVER/PAIN Last Admin: 02/27/17 04:52 Dose: 650 mg Albuterol (Ventolin Hfa Inhaler*) 2 puff INH Q4H PRN PRN Reason: SOB/WHEEZING Last Admin: 02/27/17 21:21 Dose: 2 puff Device (Nicotine Mouth Piece*) 1 each INH .USE WITH NICOTROL PRN PRN Reason: CRAVING Last Admin: 02/25/17 20:09 Dose: 1 each Haloperidol Lactate (Haldol Inj Iv/Im*) 5 mg IM Q6H PRN PRN Reason: AGITATION Last Admin: 02/26/17 21:49 Dose: 5 mg Levothyroxine Sodium (Synthroid Tab*) 125 mcg PO DAILY@0600 [facility] Last Admin: 02/28/17 05:44 Dose: 125 mcg Lorazepam (Ativan Inj*) 1 mg IV PUSH Q6H PRN PRN Reason: AGITATION/ANXIETY Last Admin: 02/25/17 22:35 Dose: 1 mg Lorazepam (Ativan Tab(*)) 1 mg PO Q4H PRN PRN Reason: ANXIETY Last Admin: 02/28/17 11:21 Dose: 1 mg Magnesium Chloride (Slow Mag Ec Tab*) 64 mg PO DAILY [facility] Last Admin: 02/28/17 10:43 Dose: 64 mg Mometasone Furoate/Formoterol Fumar (Dulera 100/5 Mdi*) 2 puff INH BID [facility] Last Admin: 02/28/17 07:46 Dose: 2 puff Nicotine (Nicotine Inhaler*) 10 mg INH Q2H PRN PRN Reason: CRAVING Last Admin: 02/25/17 20:10 Dose: 10 mg Nicotine Polacrilex (Nicotine Gum*) 2 mg PO Q2H PRN PRN Reason: CRAVING Last Admin: 02/28/17 00:11 Dose: 2 mg Omeprazole (Prilosec Cap*) 20 mg PO DAILY@0600 [facility] Last Admin: 02/28/17 05:44 Dose: 20 mg Paliperidone Palmitate (Invega Sustenna*) 234 mg IM ONCE ONE Stop: 02/28/17 15:22 Pharmacy Profile Note (Nicotine Patch Removal Note*) 1 note FOLLOW UP 06 [facility] Last Admin: 02/28/17 05:44 Dose: Not Given Risperidone (Risperdal*) 2 mg PO QPM [facility] Last Admin: 02/27/17 20:06 Dose: 2 mg Throat Lozenges (Chloraseptic Corinna*) 1 corinna PO Q6H PRN PRN Reason: SORE THROAT Last Admin: 02/27/17 11:04 Dose: 1 corinna - Discharge Plan Discharge Plan: Outpatient Follow Up Outpatient Program: [facility]
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
--- NOTE | 2017-02-28 17:00 | PN ---
Hospitalist Progress Note Patient has been getting a bit more agitated over the afternoon and is now refusing his depot shot and has been hinting about wanting to leave. In my discussion with the patient combined with his history of TBI, reported active AH and VH, intermittent SI and HI and psychiatry notes I do not feel that patient has the capacity to leave against medical advice at this time. I have no doubt that if he left without a specific plan in place and discharged to a structured environment he would return to the hospital very soon.
[2017-02-28] MEDS: risperiDONE TAB* 2 MG PO SCH (18:19)
[2017-02-28] MEDS: Albuterol HFA INHALER* 8 gm MDI INH PRN (19:57)
[2017-02-28] MEDS: Haloperidol INJ IV/IM* 5 MG/ML AMP IM PRN (22:27)
[2017-03-01] MEDS: Levothyroxine TAB* 125 MCG TAB PO SCH (06:22)
[2017-03-01] MEDS: Omeprazole CAP* 20 MG PO SCH (06:22)
[2017-03-01] MEDS ORDERED: Haloperidol TAB* 5 MG PO PRN (08:22)
[2017-03-01] MEDS: Magnesium Chloride EC TAB* 64 MG PO SCH (08:32)
[2017-03-01] MEDS: Mometasone/Formoter 100/5 MDI INH SCH ×2 (09:44→20:16)
[2017-03-01] MEDS: Albuterol HFA INHALER* 8 gm MDI INH PRN (09:44)
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
--- NOTE | 2017-03-01 14:16 | CONSULT ---
Identification - Patient Identification Reason for Psychiatric Consultation: Incapacitating Symptoms -: Patient is a 21 year old, M admitted on 02/24/17. - MHU Identification Employment Status: Disabled Hx Psychiatric Hospitalization: Yes History - Objective HPI: Michael is calm and cooperative today. He denies AH, VH, SI or HI and requests d /c from the hospital. I met with unit leadership, MARY and the patient's attending Hospitalist, Dr. Carrillo, today to discuss ways forward. The patient remains a resident of [facility] and some consideration is given to referring him back to their DSS. The patient is tolerating the introduction of paliperidone Sustenna well thus far. Lab Results: Laboratory Tests 02/24/17 02/24/17 02/24/17 08:13 08:13 08:13 WBC 9.1 RBC 3.98 L Hgb 10.7 L Hct 32 L MCV 81 MCH 27 MCHC 33 RDW 14 Plt Count 155 MPV 8 Neut % (Auto) 63.0 Lymph % (Auto) 21.7 L [place] % (Auto) 12.5 H Eos % (Auto) 2.2 Baso % (Auto) 0.6 Absolute Neuts (auto) 5.7 Absolute Lymphs (auto) 2.0 Absolute Monos (auto) 1.1 H Absolute Eos (auto) 0.2 Absolute Basos (auto) 0.1 Absolute Nucleated RBC 0 Nucleated RBC % 0 Sodium Potassium Chloride Carbon Dioxide Anion Gap BUN Creatinine Est GFR ( Amer) Est GFR (Non-Af Amer) BUN/Creatinine Ratio Glucose Calcium Magnesium Total Bilirubin AST ALT Alkaline Phosphatase Ammonia 97 H Total Protein Albumin Globulin Albumin/Globulin Ratio Valproic Acid Hep B Core Total Ab Hepatitis C Antibody Nonreactive HIV 1&2 Antibody Nonreactive 02/24/17 02/24/17 02/25/17 08:13 14:35 05:34 WBC RBC Hgb Hct MCV MCH MCHC RDW Plt Count MPV Neut % (Auto) Lymph % (Auto) [place] % (Auto) Eos % (Auto) Baso % (Auto) Absolute Neuts (auto) Absolute Lymphs (auto) Absolute Monos (auto) Absolute Eos (auto) Absolute Basos (auto) Absolute Nucleated RBC Nucleated RBC % Sodium Potassium Chloride Carbon Dioxide Anion Gap BUN Creatinine Est GFR ( Amer) Est GFR (Non-Af Amer) BUN/Creatinine Ratio Glucose Calcium Magnesium 1.7 L Total Bilirubin AST ALT Alkaline Phosphatase Ammonia 106 H Total Protein Albumin Globulin Albumin/Globulin Ratio Valproic Acid 65.0 Hep B Core Total Ab Negative Hepatitis C Antibody HIV 1&2 Antibody 02/25/17 02/25/17 02/26/17 05:34 05:34 05:06 WBC 8.6 8.3 RBC 4.02 4.08 Hgb 10.7 L 10.8 L Hct 33 L 33 L MCV 81 81 MCH 27 27 MCHC 33 33 RDW 14 14 Plt Count 164 202 MPV 8 8 Neut % (Auto) 65.6 51.8 Lymph % (Auto) 21.1 L 35.1 [place] % (Auto) 10.1 H 9.4 H Eos % (Auto) 2.7 2.9 Baso % (Auto) 0.5 0.8 Absolute Neuts (auto) 5.6 4.3 Absolute Lymphs (auto) 1.8 2.9 Absolute Monos (auto) 0.9 H 0.8 Absolute Eos (auto) 0.2 0.2 Absolute Basos (auto) 0 0.1 Absolute Nucleated RBC 0.01 0 Nucleated RBC % 0.1 0 Sodium 138 Potassium 3.6 Chloride 107 Carbon Dioxide 27 Anion Gap 4 BUN 9 Creatinine 0.58 L Est GFR ( Amer) 232.1 Est GFR (Non-Af Amer) 180.5 BUN/Creatinine Ratio 15.5 Glucose 91 Calcium 8.4 L Magnesium 1.8 L Total Bilirubin 0.30 AST 17 ALT 12 Alkaline Phosphatase 39 Ammonia Total Protein 5.6 L Albumin 3.3 Globulin 2.3 Albumin/Globulin Ratio 1.4 Valproic Acid Hep B Core Total Ab Hepatitis C Antibody HIV 1&2 Antibody 02/26/17 02/26/17 02/27/17 05:06 05:06 05:49 WBC RBC Hgb Hct MCV MCH MCHC RDW Plt Count MPV Neut % (Auto) Lymph % (Auto) [place] % (Auto) Eos % (Auto) Baso % (Auto) Absolute Neuts (auto) Absolute Lymphs (auto) Absolute Monos (auto) Absolute Eos (auto) Absolute Basos (auto) Absolute Nucleated RBC Nucleated RBC % Sodium 138 Potassium 3.7 Chloride 104 Carbon Dioxide 27 Anion Gap 7 BUN 9 Creatinine 0.65 L Est GFR ( Amer) 203.5 Est GFR (Non-Af Amer) 158.3 BUN/Creatinine Ratio 13.8 Glucose 92 Calcium 8.8 Magnesium 1.7 L 1.6 L Total Bilirubin 0.20 AST 16 ALT 12 Alkaline Phosphatase 56 Ammonia 71 H Total Protein 6.0 L Albumin 3.5 Globulin 2.5 Albumin/Globulin Ratio 1.4 Valproic Acid Hep B Core Total Ab Hepatitis C Antibody HIV 1&2 Antibody 02/27/17 02/28/17 05:49 09:16 WBC RBC Hgb Hct MCV MCH MCHC RDW Plt Count MPV Neut % (Auto) Lymph % (Auto) [place] % (Auto) Eos % (Auto) Baso % (Auto) Absolute Neuts (auto) Absolute Lymphs (auto) Absolute Monos (auto) Absolute Eos (auto) Absolute Basos (auto) Absolute Nucleated RBC Nucleated RBC % Sodium 136 Potassium 4.0 Chloride 102 Carbon Dioxide 28 Anion Gap 6 BUN 14 Creatinine 0.70 Est GFR ( Amer) 186.8 Est GFR (Non-Af Amer) 145.3 BUN/Creatinine Ratio 20.0 Glucose 93 Calcium 9.5 Magnesium 1.7 L Total Bilirubin AST ALT Alkaline Phosphatase Ammonia 67 H Total Protein Albumin Globulin Albumin/Globulin Ratio Valproic Acid Hep B Core Total Ab Hepatitis C Antibody HIV 1&2 Antibody Exam Appearance: Healthy Appearing Hygiene: Normal Grooming: Fairly Well Kept Psychomotor Activities: Abnormal-Increased Exhibits Abnormal Movement: No Attitude and Relatedness: Manipulative Eye Contact: Fair - Speech Quality: Unpressured Latencies: Normal Quantity: Terse Patient's Decription of Mood: "Fine" Observed Affect: Non-labile Affect Consistent with: Euthymia Patient's Thought Process: Circumstantial Thought Content: No Passive Wish, No Suicidal Planning, No Homicidal Ideation, No Paranoid Ideation Experiencing Hallucinations: Yes Type of Hallucinations: Visual: Yes, Auditory: Yes, Command: No Level of Consciousness: Alert Orientation: Yes Intact, Yes Orientated to Time, Yes Orientated to Place, Yes Orientated to Person Impulse Control: Tenuous Insight and Judgement: Poor Impression - Impression Clinical Impression: 21 y.o. single, homeless male, recently released from incarceration at [facility] (02/18/17) with a history of developmental delay, TBI, impulse control problems, putative schizophrenia and bipolar conditions and substance abuse, as well as factitious disorder who is now admitted to the medical service for the second time in 3 days due to intentional overdose on unspecified medications. Although he denied all psychiatric symptoms as recently as the february, he is now endorsing SI, HI, AH and VH, is making threatening statements to staff and seems invested in being admitted to the [facility] for likely secondary gain. Merits Inpatient Hospitalization: No Problem List - MHU Problems Type of Problem: Impulse Control Status of Problem: Active Plan - Treatment Plan Treatment Plan: The patient is tolerating his trial of paliperidone Sustenna 234mg IM well thus far. He can receive a booster dose as early as this (03/03). For now, we will keep him on 1:1 obs, although I don't believe him to necessarily be dangerous to anyone. Psychiatry will continue to follow. Consider d/c to [facility] thereafter. Continued Medication Management: Start Medication Medications: Current Medications Acetaminophen (Tylenol Tab*) 650 mg PO Q4H PRN PRN Reason: FEVER/PAIN Last Admin: 02/27/17 04:52 Dose: 650 mg Albuterol (Ventolin Hfa Inhaler*) 2 puff INH Q4H PRN PRN Reason: SOB/WHEEZING Last Admin: 03/01/17 09:44 Dose: 2 puff Device (Nicotine Mouth Piece*) 1 each INH .USE WITH NICOTROL PRN PRN Reason: CRAVING Last Admin: 02/25/17 20:09 Dose: 1 each Haloperidol (Haldol Tab*) 5 mg PO Q6H PRN PRN Reason: AGITATION Haloperidol Lactate (Haldol Inj Iv/Im*) 5 mg IM Q6H PRN PRN Reason: AGITATION Last Admin: 02/28/17 22:27 Dose: 5 mg Levothyroxine Sodium (Synthroid Tab*) 125 mcg PO DAILY@0600 [facility] Last Admin: 03/01/17 06:22 Dose: 125 mcg Lorazepam (Ativan Inj*) 1 mg IV PUSH Q6H PRN PRN Reason: AGITATION/ANXIETY Last Admin: 02/25/17 22:35 Dose: 1 mg Lorazepam (Ativan Tab(*)) 1 mg PO Q4H PRN PRN Reason: ANXIETY Last Admin: 02/28/17 11:21 Dose: 1 mg Magnesium Chloride (Slow Mag Ec Tab*) 64 mg PO DAILY [facility] Last Admin: 03/01/17 08:32 Dose: 64 mg Mometasone Furoate/Formoterol Fumar (Dulera 100/5 Mdi*) 2 puff INH BID [facility] Last Admin: 03/01/17 09:44 Dose: 2 puff Nicotine (Nicotine Inhaler*) 10 mg INH Q2H PRN PRN Reason: CRAVING Last Admin: 02/25/17 20:10 Dose: 10 mg Nicotine Polacrilex (Nicotine Gum*) 2 mg PO Q2H PRN PRN Reason: CRAVING Last Admin: 02/28/17 00:11 Dose: 2 mg Omeprazole (Prilosec Cap*) 20 mg PO DAILY@0600 [facility] Last Admin: 03/01/17 06:22 Dose: 20 mg Risperidone (Risperdal*) 2 mg PO QPM [facility] Last Admin: 02/28/17 18:19 Dose: Not Given Throat Lozenges (Chloraseptic Corinna*) 1 corinna PO Q6H PRN PRN Reason: SORE THROAT Last Admin: 02/27/17 11:04 Dose: 1 corinna - Discharge Plan Discharge Plan: Outpatient Follow Up
[2017-03-01] MEDS: Nicotine GUM* 2 MG PO PRN (16:14)
[2017-03-01] MEDS: risperiDONE TAB* 2 MG PO SCH (17:05)
[2017-03-01] MEDS: LORazepam INJ* 2 MG/ML 1 ML VIAL IV PUSH PRN ×2 (19:50→19:55)
[2017-03-01 20:11] LABS: Comments Flag Yes; Hematocrit 35 % (42-52); Hemoglobin 11.2 g/dl (14.0-18.0); Mean Corpuscular HGB Conc 32 g/dl (31-36); Mean Corpuscular Hemoglobin 26 pg (27-31); Mean Corpuscular Volume 81 fL (80-94); Mean Platelet Volume 8 um3 (7.4-10.4); Red Blood Count 4.33 10^6/ul (4.0-5.4); Red Cell Distribution Width 14 % (10.5-15); White Blood Count 13.8 10^3/ul (3.5-10.8)
[2017-03-01 20:12] LABS: Add Diff/Slide Review? Slide Review Added
--- NOTE | 2017-03-01 20:22 | PN ---
Progress Note - Progress Note Date of Service: 03/01/17 Note: CAT response Upon arrival Mr Teague is lying in the wynne in front of his room. He is well known to me from a recent admission. Apparently he has had all anti-seizure medications d/c'd 2nd no compelling history of seizures and 2 negative EEGs. Per nursing, he had walked up to her stating he "has bad news. I think I'm going to have a seizure." and then 'collapsed' into her arms and was lowered to the floor. His eyelids were fluttering without convulsions, and his gaze remained focused and conjugate. He did not respond to noxious stimuli. He received 2 doses of 2mg IV lorazepam, had a final opisthotonic spasm and gasp, and then seemed fatigued, but answered questions sluggishly. Vitals were stable throughout, including saO2. Labs: CBC, BMP, lactic acid, & prolactin ordered. general: young male, no objective distress lungs: CTAB, normal effort CV: sinus tachycardia rate 100-110s abdomen: SNTND, NABS extremities: W&D assessment: plan suspect pseudo-seizure : 3rd EEG in AM : start telemetry monitoring : continue seizure precautions : no anti-convulsives at this time : case reviewed w/ D MD Marco neurology who agreed with above
[2017-03-01 20:24] LABS: BUN/Creatinine Ratio 19.3 (8-20); EGFR African American 153.5 (>60); EGFR Non-African American 119.4 (>60); Potassium 4.2 mmol/L (3.5-5.0)
[2017-03-01 20:37] LABS: Eosinophils % 2 % (0-6); Immature Granulocytes 2 % (0-9); Neutrophil % 64 % (38-83); RBC Morphology Normal (Normal)
[2017-03-01 21:14] LABS: Prolactin 37.3 ng/mL (1.0-20.0)
[2017-03-02] MEDS: Levothyroxine TAB* 125 MCG TAB PO SCH (06:10)
[2017-03-02] MEDS: Omeprazole CAP* 20 MG PO SCH (06:10)
[2017-03-02] MEDS: Mometasone/Formoter 100/5 MDI INH SCH ×2 (08:51→19:54)
[2017-03-02] MEDS: Magnesium Chloride EC TAB* 64 MG PO SCH (11:22)
[2017-03-02] MEDS: LORazepam INJ* 2 MG/ML 1 ML VIAL IV PUSH PRN (12:04)
--- NOTE | 2017-03-02 12:13 | PN ---
Subjective Date of Service: 03/02/17 Interval History: Overnight events noted, seems likely pseudoseizure. Visited patient 2x in the morning but both times he was sleeping, nursing stated he had been withdrawn this morning and much less interactive. Later in the morning was alerted to response team call to 4S. Apparently patient was laying on the couch in his room and suddenly threw off the blankets and ran out of the door and down the hallway, he was able to be redirected initially but then ran towards the other doors to the unit. Response team arrived and the patient became more agitated and began to become physically resistant to security team and he was restrained on the ground. The patient eventually calmed down and was escorted back to his room and given IM ativan as his IV was not functioning. The patient states he heard his mom call "in my head" and he thought he was leaving with her and that was why he began to run off the floor. Family History: Unchanged from Admission Social History: Unchanged from Admission Past Medical History: Unchanged from Admission Objective Active Medications: Acetaminophen (Tylenol Tab*) 650 mg PO Q4H PRN PRN Reason: FEVER/PAIN Last Admin: 02/27/17 04:52 Dose: 650 mg Albuterol (Ventolin Hfa Inhaler*) 2 puff INH Q4H PRN PRN Reason: SOB/WHEEZING Last Admin: 03/01/17 09:44 Dose: 2 puff Device (Nicotine Mouth Piece*) 1 each INH .USE WITH NICOTROL PRN PRN Reason: CRAVING Last Admin: 02/25/17 20:09 Dose: 1 each Haloperidol (Haldol Tab*) 5 mg PO Q6H PRN PRN Reason: AGITATION Haloperidol Lactate (Haldol Inj Iv/Im*) 5 mg IM Q6H PRN PRN Reason: AGITATION Last Admin: 02/28/17 22:27 Dose: 5 mg Levothyroxine Sodium (Synthroid Tab*) 125 mcg PO DAILY@0600 [facility] Last Admin: 03/02/17 06:10 Dose: 125 mcg Lorazepam (Ativan Inj*) 1 mg IV PUSH Q6H PRN PRN Reason: AGITATION/ANXIETY Last Admin: 02/25/17 22:35 Dose: 1 mg Lorazepam (Ativan Tab(*)) 1 mg PO Q4H PRN PRN Reason: ANXIETY Last Admin: 02/28/17 11:21 Dose: 1 mg Lorazepam (Ativan Inj*) 2 mg IV PUSH Q10M PRN PRN Reason: SEIZURES Last Admin: 03/02/17 12:04 Dose: 2 mg Magnesium Chloride (Slow Mag Ec Tab*) 64 mg PO DAILY [facility] Last Admin: 03/02/17 11:22 Dose: 64 mg Mometasone Furoate/Formoterol Fumar (Dulera 100/5 Mdi*) 2 puff INH BID [facility] Last Admin: 03/02/17 08:51 Dose: Not Given Nicotine (Nicotine Inhaler*) 10 mg INH Q2H PRN PRN Reason: CRAVING Last Admin: 02/25/17 20:10 Dose: 10 mg Nicotine Polacrilex (Nicotine Gum*) 2 mg PO Q2H PRN PRN Reason: CRAVING Last Admin: 03/01/17 16:14 Dose: 2 mg Omeprazole (Prilosec Cap*) 20 mg PO DAILY@0600 [facility] Last Admin: 03/02/17 06:10 Dose: 20 mg Risperidone (Risperdal*) 2 mg PO QPM [facility] Last Admin: 03/01/17 17:05 Dose: 2 mg Throat Lozenges (Chloraseptic Corinna*) 1 corinna PO Q6H PRN PRN Reason: SORE THROAT Last Admin: 02/27/17 11:04 Dose: 1 corinna Vital Signs 03/01/17 03/01/17 03/01/17 15:13 18:51 19:40 Temperature 98.0 F 97.5 F 97.6 F Pulse Rate 112 97 50 Respiratory 20 20 Rate Blood Pressure 134/64 99/49 128/46 (mmHg) O2 Sat by Pulse 100 100 97 Oximetry 03/01/17 03/01/17 03/01/17 19:45 19:50 19:55 Temperature Pulse Rate 128 Respiratory 20 20 Rate Blood Pressure 144/70 (mmHg) O2 Sat by Pulse Oximetry 03/01/17 03/01/17 03/01/17 20:00 20:10 20:20 Temperature Pulse Rate 106 101 100 Respiratory 20 Rate Blood Pressure 120/60 107/51 109/54 (mmHg) O2 Sat by Pulse 100 100 100 Oximetry 03/01/17 03/01/17 03/01/17 20:30 20:45 21:05 Temperature 97.7 F 98.2 F Pulse Rate 98 101 99 Respiratory 20 24 Rate Blood Pressure 116/53 101/48 97/48 (mmHg) O2 Sat by Pulse 100 98 Oximetry 03/01/17 03/01/17 03/01/17 21:37 22:02 22:59 Temperature Pulse Rate 84 77 Respiratory 20 20 Rate Blood Pressure 92/40 90/41 98/47 (mmHg) O2 Sat by Pulse 99 Oximetry 03/02/17 12:04 Temperature Pulse Rate Respiratory 18 Rate Blood Pressure (mmHg) O2 Sat by Pulse Oximetry Oxygen Devices in Use Now: None Appearance: Young man, laying in bed, lethargic after ativan Ears/Nose/Mouth/Throat: Mucous Membranes Moist Respiratory: Symmetrical Chest Expansion and Respiratory Effort, Clear to Auscultation Cardiovascular: - - Mild tachycardia Abdominal: NL Sounds; No Tenderness; No Distention Lymphatic: No Cervical Adenopathy Extremities: No Edema Skin: No Rash or Ulcers Neurological: - - Lethargic after ativan, no focal deficits Result Diagrams: 03/01/17 20:01 03/01/17 20:01 Additional Lab and Data: . Microbiology and Other Data: . Assess/Plan/Problems-Billing Assessment: 21yo male PHM childhood TBI w/ skull plate & developmental delay, hypothyroidism, Asthma, Seizure disorder, Schizophrenia, ADHD and Bipolar disorder and 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 Ordonez to be fictious (UDS also negative). Recent OD on supply of depakote. Recently incarcerated for violence against RN. Seeking safe discharge plan, Psych has no plans to admit to [facility]. - Patient Problems (1) Factitious disorder Current Visit: Yes Comment: vs malingering. [employer] representative stated to psychiatry that he has a history of faking medical illness for secondary gain. Consistent with constantly changing HPI. Will monitor for these behaviors. (2) Polysubstance overdose Current Visit: No Comment: Patient endorses multiple substance abuse. Negative UDS at admission. No signs of IV drug use on skin. Blood cultures drawn for possible bacteremia and are negative. Hepatitis B and C negative. HIV testing negative. Patient has no signs or symptoms of withdrawal. (3) Seizure disorder Current Visit: No Comment: Appreciate neurology consult. No signs or compelling story of seizure and negative EEGx2, 3rd EEG ordered with repeat event on 03/01, read pending. Will keep off antiseizure medication at this time. Had been trending ammonia but will stop, last level at 67. Recent OD on depakote. (4) Suicide attempt Current Visit: No Comment: Impulsive behavior Psych does not believe his stated psychiatric complaints warrent admission to [facility]. Concern for factitious disorder. seeking safe discharge plan continue risperidal 2mg nightly with transition to safe observed outpatient environment where could get q28day paliperiodone, Psych has ordered first dose on 02/28, will plan for booster on 03/03 or 03/04 appreciate Psych recs. Will discuss further with Dr. Danielle re: possible [facility] transfer (5) DVT prophylaxis Current Visit: No Comment: Low risk ambulation Status and Disposition: medicine inpatient. Difficult discharge as danger to self and recently incarcerated for violence against RN. Had meeting with Psych/SW/floor directors on 03/01, at this time will attempt to find placement around [place] where patient is from and where his mother lives. Continue 1:1 for now, patient lacks capacity to leave A[facility]
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
[2017-03-02] MEDS ORDERED: chlorproMAZINE INJ* 25 MG/ML 2 ML (50 MG) IM ONE (13:02)
[2017-03-02] MEDS ORDERED: LORazepam INJ* 2 MG/ML 1 ML VIAL ONE (13:04)
[2017-03-02] MEDS ORDERED: Haloperidol INJ IV/IM* 5 MG/ML AMP ONE (13:04)
[2017-03-02] MEDS ORDERED: diPHENhydraMINE IV* 50 MG/ML 1 ml VIAL (BENADRYL) ONE (13:04)
[2017-03-02] MEDS ORDERED: LORazepam INJ* 2 MG/ML 1 ML VIAL IM PRN (15:28)
[2017-03-02] MEDS: Haloperidol TAB* 5 MG PO SCH ×2 (18:23→21:00)
[2017-03-02] MEDS: Albuterol HFA INHALER* 8 gm MDI INH PRN (19:55)
[2017-03-02] MEDS: Acetaminophen TAB* 325 MG PO PRN (21:00)
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
--- NOTE | 2017-03-03 07:04 | EEG ---
ELECTROENCEPHALOGRAPHY: DATE OF STUDY: 03/02/17 LOCATION: The patient is an inpatient. ORDERING PHYSICIAN: Dr. Fang. CLINICAL PROBLEM: This is a 21-year-old man who had a cat call on him last night when he walked out to the nursing station and stated that he "has bad news; I think I am going to have a seizure." The patient then collapsed into the nurse's arms and was lowered to the floor. His eyelids were flutteri ng without convulsions. His gaze remained focus and conjugate with some [id number] roving movements per Dr. Fang. He also mentioned back arching. The patient was given 2 doses of Ativan. EEG is requested to evaluate for epileptiform abnormalities. MEDICATIONS: 1. Nicotine inhaler. 2. Ativan. 3. Haldol. 4. Chloraseptic. 5. Ventolin. 6. Tylenol. 7. Prilosec. 8. Synthroid. 9. Risperdal. 10. Dulera. 11. Magnesium. REPORT: The waking background showed appropriate organization with clearly defined anterior to poste rior voltage and frequency gradients. There was a well-defined posterior dominant rhythm of 9 Hz, wh ich was symmetrical and showed normal reactivity. Anteriorly, there was an expected pattern of lower voltage, irregular, mixed faster frequencies. Photic stimulation and hyperventilation were not performed. The patient slept during the majority of the EEG. The sleep background showed appropriate organizati on with well-developed sleep spindles and vertex waves. The sleep transients showed appropriate morp hology and were bilaterally synchronous and symmetrical. Throughout the recording, there were no epileptiform discharges, focal features, paroxysmal features, or significant interhemispheric asymmetries. CLINICAL IMPRESSION: This is a normal waking and sleep EEG. There are no epileptiform abnormalities . [id number]/[id number] #: [id number]
[2017-03-03] MEDS ORDERED: Paliperidone SUSTENNA* 156 MG/1 ML IM ONE (08:00)
[2017-03-03] MEDS: Omeprazole CAP* 20 MG PO SCH (08:23)
[2017-03-03] MEDS: Levothyroxine TAB* 125 MCG TAB PO SCH (08:23)
[2017-03-03] MEDS: Magnesium Chloride EC TAB* 64 MG PO SCH (08:39)
[2017-03-03] MEDS: Haloperidol TAB* 5 MG PO SCH (08:39)
[2017-03-03] MEDS: Mometasone/Formoter 100/5 MDI INH SCH (08:41)
[2017-03-03 09:58] VITALS: BP 114/61
--- NOTE | 2017-03-03 10:41 | CONSULT ---
Identification - Patient Identification Reason for Psychiatric Consultation: Incapacitating Symptoms -: Patient is a 21 year old, M admitted on 02/24/17. - MHU Identification Employment Status: Disabled Hx Psychiatric Hospitalization: Yes History - Objective HPI: Michael is calm and pleasant this AM. He was cooperative throughout the evening and into the day following his emotional outbursts which occurred yesterday. He is tolerating injectable, long-acting paliperidone well and successfully received his booster dose of 156mg this morning without incident. "Hi Doc, how are you? Am I going home to [place] today?" He denies AH, VH, SI or HI. I reviewed the results of his most recent EEG, from yesterday, and again it shows no evidence of epileptiform changes. The patient is educated about the plan to seek emergency housing through [facility] and he is also aware that case management and outpatient MH services have been put in place. SW is arranging transportation. Michael demonstrates understanding and consent for these interventions. He is appropriately contrite about his behaviors from the day before. Lab Results: Laboratory Tests 02/24/17 02/24/17 02/24/17 08:13 08:13 08:13 WBC 9.1 RBC 3.98 L Hgb 10.7 L Hct 32 L MCV 81 MCH 27 MCHC 33 RDW 14 Plt Count 155 MPV 8 Immature Gran % (Auto) Neut % (Auto) 63.0 Lymph % (Auto) 21.7 L [place] % (Auto) 12.5 H Eos % (Auto) 2.2 Baso % (Auto) 0.6 Absolute Neuts (auto) 5.7 Absolute Lymphs (auto) 2.0 Absolute Monos (auto) 1.1 H Absolute Eos (auto) 0.2 Absolute Basos (auto) 0.1 Absolute Nucleated RBC 0 Neutrophils % Band Neutrophils % Lymphocytes % Monocytes % Eosinophils % Nucleated RBC % 0 Normal RBC Morphology Sodium Potassium Chloride Carbon Dioxide Anion Gap BUN Creatinine Est GFR ( Amer) Est GFR (Non-Af Amer) BUN/Creatinine Ratio Glucose POC Glucose (mg/dL) Lactic Acid Calcium Magnesium Total Bilirubin AST ALT Alkaline Phosphatase Ammonia 97 H Total Protein Albumin Globulin Albumin/Globulin Ratio Prolactin Valproic Acid Hep B Core Total Ab Hepatitis C Antibody Nonreactive HIV 1&2 Antibody Nonreactive 11/02/17 11/02/17 11/03/17 08:13 14:35 05:34 WBC RBC Hgb Hct MCV MCH MCHC RDW Plt Count MPV Immature Gran % (Auto) Neut % (Auto) Lymph % (Auto) [place] % (Auto) Eos % (Auto) Baso % (Auto) Absolute Neuts (auto) Absolute Lymphs (auto) Absolute Monos (auto) Absolute Eos (auto) Absolute Basos (auto) Absolute Nucleated RBC Neutrophils % Band Neutrophils % Lymphocytes % Monocytes % Eosinophils % Nucleated RBC % Normal RBC Morphology Sodium Potassium Chloride Carbon Dioxide Anion Gap BUN Creatinine Est GFR ( Amer) Est GFR (Non-Af Amer) BUN/Creatinine Ratio Glucose POC Glucose (mg/dL) Lactic Acid Calcium Magnesium 1.7 L Total Bilirubin AST ALT Alkaline Phosphatase Ammonia 106 H Total Protein Albumin Globulin Albumin/Globulin Ratio Prolactin Valproic Acid 65.0 Hep B Core Total Ab Negative Hepatitis C Antibody HIV 1&2 Antibody 02/25/17 02/25/17 02/26/17 05:34 05:34 05:06 WBC 8.6 8.3 RBC 4.02 4.08 Hgb 10.7 L 10.8 L Hct 33 L 33 L MCV 81 81 MCH 27 27 MCHC 33 33 RDW 14 14 Plt Count 164 202 MPV 8 8 Immature Gran % (Auto) Neut % (Auto) 65.6 51.8 Lymph % (Auto) 21.1 L 35.1 [place] % (Auto) 10.1 H 9.4 H Eos % (Auto) 2.7 2.9 Baso % (Auto) 0.5 0.8 Absolute Neuts (auto) 5.6 4.3 Absolute Lymphs (auto) 1.8 2.9 Absolute Monos (auto) 0.9 H 0.8 Absolute Eos (auto) 0.2 0.2 Absolute Basos (auto) 0 0.1 Absolute Nucleated RBC 0.01 0 Neutrophils % Band Neutrophils % Lymphocytes % Monocytes % Eosinophils % Nucleated RBC % 0.1 0 Normal RBC Morphology Sodium 138 Potassium 3.6 Chloride 107 Carbon Dioxide 27 Anion Gap 4 BUN 9 Creatinine 0.58 L Est GFR ( Amer) 232.1 Est GFR (Non-Af Amer) 180.5 BUN/Creatinine Ratio 15.5 Glucose 91 POC Glucose (mg/dL) Lactic Acid Calcium 8.4 L Magnesium 1.8 L Total Bilirubin 0.30 AST 17 ALT 12 Alkaline Phosphatase 39 Ammonia Total Protein 5.6 L Albumin 3.3 Globulin 2.3 Albumin/Globulin Ratio 1.4 Prolactin Valproic Acid Hep B Core Total Ab Hepatitis C Antibody HIV 1&2 Antibody 02/26/17 02/26/17 02/27/17 05:06 05:06 05:49 WBC RBC Hgb Hct MCV MCH MCHC RDW Plt Count MPV Immature Gran % (Auto) Neut % (Auto) Lymph % (Auto) [place] % (Auto) Eos % (Auto) Baso % (Auto) Absolute Neuts (auto) Absolute Lymphs (auto) Absolute Monos (auto) Absolute Eos (auto) Absolute Basos (auto) Absolute Nucleated RBC Neutrophils % Band Neutrophils % Lymphocytes % Monocytes % Eosinophils % Nucleated RBC % Normal RBC Morphology Sodium 138 Potassium 3.7 Chloride 104 Carbon Dioxide 27 Anion Gap 7 BUN 9 Creatinine 0.65 L Est GFR ( Amer) 203.5 Est GFR (Non-Af Amer) 158.3 BUN/Creatinine Ratio 13.8 Glucose 92 POC Glucose (mg/dL) Lactic Acid Calcium 8.8 Magnesium 1.7 L 1.6 L Total Bilirubin 0.20 AST 16 ALT 12 Alkaline Phosphatase 56 Ammonia 71 H Total Protein 6.0 L Albumin 3.5 Globulin 2.5 Albumin/Globulin Ratio 1.4 Prolactin Valproic Acid Hep B Core Total Ab Hepatitis C Antibody HIV 1&2 Antibody 02/27/17 02/28/17 03/01/17 05:49 09:16 19:48 WBC RBC Hgb Hct MCV MCH MCHC RDW Plt Count MPV Immature Gran % (Auto) Neut % (Auto) Lymph % (Auto) [place] % (Auto) Eos % (Auto) Baso % (Auto) Absolute Neuts (auto) Absolute Lymphs (auto) Absolute Monos (auto) Absolute Eos (auto) Absolute Basos (auto) Absolute Nucleated RBC Neutrophils % Band Neutrophils % Lymphocytes % Monocytes % Eosinophils % Nucleated RBC % Normal RBC Morphology Sodium 136 Potassium 4.0 Chloride 102 Carbon Dioxide 28 Anion Gap 6 BUN 14 Creatinine 0.70 Est GFR ( Amer) 186.8 Est GFR (Non-Af Amer) 145.3 BUN/Creatinine Ratio 20.0 Glucose 93 POC Glucose (mg/dL) 115 H Lactic Acid Calcium 9.5 Magnesium 1.7 L Total Bilirubin AST ALT Alkaline Phosphatase Ammonia 67 H Total Protein Albumin Globulin Albumin/Globulin Ratio Prolactin Valproic Acid Hep B Core Total Ab Hepatitis C Antibody HIV 1&2 Antibody 03/01/17 03/01/17 03/01/17 20:01 20:01 20:01 WBC 13.8 H RBC 4.33 Hgb 11.2 L Hct 35 L MCV 81 MCH 26 L MCHC 32 RDW 14 Plt Count 331 MPV 8 Immature Gran % (Auto) 2 Neut % (Auto) 56.9 Lymph % (Auto) 29.6 [place] % (Auto) 11.1 H Eos % (Auto) 1.4 Baso % (Auto) 1.0 Absolute Neuts (auto) 7.8 H Absolute Lymphs (auto) 4.1 Absolute Monos (auto) 1.5 H Absolute Eos (auto) 0.2 Absolute Basos (auto) 0.1 Absolute Nucleated RBC 0.01 Neutrophils % 64 Band Neutrophils % 2 Lymphocytes % 29 Monocytes % 3 Eosinophils % 2 Nucleated RBC % 0 Normal RBC Morphology Normal Sodium 136 Potassium 4.2 Chloride 101 Carbon Dioxide 28 Anion Gap 7 BUN 16 Creatinine 0.83 Est GFR ( Amer) 153.5 Est GFR (Non-Af Amer) 119.4 BUN/Creatinine Ratio 19.3 Glucose 75 POC Glucose (mg/dL) Lactic Acid 2.5 H* Calcium 10.0 Magnesium Total Bilirubin AST ALT Alkaline Phosphatase Ammonia Total Protein Albumin Globulin Albumin/Globulin Ratio Prolactin 37.3 H Valproic Acid Hep B Core Total Ab Hepatitis C Antibody HIV 1&2 Antibody 03/02/17 02:29 WBC RBC Hgb Hct MCV MCH MCHC RDW Plt Count MPV Immature Gran % (Auto) Neut % (Auto) Lymph % (Auto) [place] % (Auto) Eos % (Auto) Baso % (Auto) Absolute Neuts (auto) Absolute Lymphs (auto) Absolute Monos (auto) Absolute Eos (auto) Absolute Basos (auto) Absolute Nucleated RBC Neutrophils % Band Neutrophils % Lymphocytes % Monocytes % Eosinophils % Nucleated RBC % Normal RBC Morphology Sodium Potassium Chloride Carbon Dioxide Anion Gap BUN Creatinine Est GFR ( Amer) Est GFR (Non-Af Amer) BUN/Creatinine Ratio Glucose POC Glucose (mg/dL) Lactic Acid 0.6 Calcium Magnesium Total Bilirubin AST ALT Alkaline Phosphatase Ammonia Total Protein Albumin Globulin Albumin/Globulin Ratio Prolactin Valproic Acid Hep B Core Total Ab Hepatitis C Antibody HIV 1&2 Antibody Exam Appearance: Healthy Appearing Hygiene: Normal Grooming: Fairly Well Kept Psychomotor Activities: Normal Exhibits Abnormal Movement: No Attitude and Relatedness: Child Like Eye Contact: Fair - Speech Quality: Unpressured Latencies: Normal Quantity: Terse Patient's Decription of Mood: "Fine" Observed Affect: Non-labile Affect Consistent with: Euthymia Patient's Thought Process: Circumstantial Thought Content: No Passive Wish, No Suicidal Planning, No Homicidal Ideation, No Paranoid Ideation Experiencing Hallucinations: No, Sensorium is Clear Type of Hallucinations: Visual: No, Auditory: No, Command: No Level of Consciousness: Alert Orientation: Yes Intact, Yes Orientated to Time, Yes Orientated to Place, Yes Orientated to Person Impulse Control: Tenuous Insight and Judgement: Fair Impression - Impression Clinical Impression: 21 y.o. single, homeless male, recently released from incarceration at [facility] (02/18/17) with a history of developmental delay, TBI, impulse control problems, putative schizophrenia and bipolar conditions and substance abuse, as well as factitious disorder who is now admitted to the medical service for the second time in 3 days due to intentional overdose on unspecified medications. Since admission his behaviors have been contradictory and attention seeking and he appears to be malingering for secondary-gain of housing. Inpatient DSM-IV Dx: Impulse Control DO, NOS Merits Inpatient Hospitalization: No Problem List - MHU Problems Type of Problem: Impulse Control Status of Problem: Resolved Plan - Treatment Plan Treatment Plan: The patient is tolerating his trial of paliperidone Sustenna well thus far and his next dose of 234mg will be due March 31. MH f/u will be tomorrow at [facility]. Michael is to be discharged this morning , via cab, to [facility] in order to receive emergency housing, as is his choice. He is much better connected in that community, has family there and will have better options for supportive housing, which is ultimately what he most needs. Psychiatry would like to thank the [facility] staff for their incredible efforts to provide compassionate and appropriate care for this challenging patient. We are signing off the case. Continued Medication Management: Start Medication Medications: Current Medications Acetaminophen (Tylenol Tab*) 650 mg PO Q4H PRN PRN Reason: FEVER/PAIN Last Admin: 03/02/17 21:00 Dose: 650 mg Albuterol (Ventolin Hfa Inhaler*) 2 puff INH Q4H PRN PRN Reason: SOB/WHEEZING Last Admin: 03/02/17 19:55 Dose: 2 puff Device (Nicotine Mouth Piece*) 1 each INH .USE WITH NICOTROL PRN PRN Reason: CRAVING Last Admin: 02/25/17 20:09 Dose: 1 each Haloperidol (Haldol Tab*) 5 mg PO Q6H PRN PRN Reason: AGITATION Haloperidol (Haldol Tab*) 5 mg PO TID ON LICENSE OF [facility] Last Admin: 03/03/17 08:39 Dose: 5 mg Haloperidol Lactate (Haldol Inj Iv/Im*) 5 mg IM Q6H PRN PRN Reason: AGITATION Last Admin: 02/28/17 22:27 Dose: 5 mg Levothyroxine Sodium (Synthroid Tab*) 125 mcg PO DAILY@0600 ON LICENSE OF [facility] Last Admin: 03/03/17 08:23 Dose: Not Given Lorazepam (Ativan Tab(*)) 1 mg PO Q4H PRN PRN Reason: ANXIETY Last Admin: 02/28/17 11:21 Dose: 1 mg Lorazepam (Ativan Inj*) 2 mg IV PUSH Q10M PRN PRN Reason: SEIZURES Last Admin: 03/02/17 12:04 Dose: 2 mg Lorazepam (Ativan Inj*) 1 mg IM Q4H PRN PRN Reason: AGITATION/ANXIETY Magnesium Chloride (Slow Mag Ec Tab*) 64 mg PO DAILY ON LICENSE OF [facility] Last Admin: 03/03/17 08:39 Dose: 64 mg Mometasone Furoate/Formoterol Fumar (Dulera 100/5 Mdi*) 2 puff INH BID ON LICENSE OF [facility] Last Admin: 03/03/17 08:41 Dose: 2 puff Nicotine (Nicotine Inhaler*) 10 mg INH Q2H PRN PRN Reason: CRAVING Last Admin: 02/25/17 20:10 Dose: 10 mg Nicotine Polacrilex (Nicotine Gum*) 2 mg PO Q2H PRN PRN Reason: CRAVING Last Admin: 03/01/17 16:14 Dose: 2 mg Omeprazole (Prilosec Cap*) 20 mg PO DAILY@0600 ON LICENSE OF [facility] Last Admin: 03/03/17 08:23 Dose: Not Given Throat Lozenges (Chloraseptic Corinna*) 1 corinna PO Q6H PRN PRN Reason: SORE THROAT Last Admin: 02/27/17 11:04 Dose: 1 corinna - Discharge Plan Discharge Plan: Outpatient Follow Up Outpatient Program: [facility]
== END 2017-03-03 11:01 | disposition home or self-care (01) | DRG 756 ==
LOC: ED 00:22 → MED 03:21 → ED 04:50 → MEDTELE 08:19 → OBSVTOIN 02-24 07:18 → ICU 02-24 14:08 → MEDTELE 02-25 11:23
PROVIDERS: ADMIT Hospitalist; ATTEND Hospitalist
PROC: 4A00X4Z Measurement of Central Nervous Electrical Activity, External Approach (ICD-10-PCS; principal; 2017-02-24)
PROC: 5A09357 Assistance with Respiratory Ventilation, Less than 24 Consecutive Hours, Continuous Positive Airway Pressure (ICD-10-PCS; 2017-02-25)
DX: F68.13 Factitious disorder imposed on self, with combined psychological and physical signs and symptoms (principal); E87.2 Acidosis; E72.20 Disorder of urea cycle metabolism, unspecified; F20.9 Schizophrenia, unspecified; M62.82 Rhabdomyolysis; F63.9 Impulse disorder, unspecified; E11.9 Type 2 diabetes mellitus without complications; G47.30 Sleep apnea, unspecified; J45.909 Unspecified asthma, uncomplicated; F50.9 Eating disorder, unspecified; F43.10 Post-traumatic stress disorder, unspecified; F41.9 Anxiety disorder, unspecified; R40.2362 Coma scale, best motor response, obeys commands, at arrival to emergency department; R40.2142 Coma scale, eyes open, spontaneous, at arrival to emergency department; R40.2242 Coma scale, best verbal response, confused conversation, at arrival to emergency department; F90.9 Attention-deficit hyperactivity disorder, unspecified type; E03.9 Hypothyroidism, unspecified; G40.909 Epilepsy, unspecified, not intractable, without status epilepticus; F70 Mild intellectual disabilities; R45.6 Violent behavior; F19.10 Other psychoactive substance abuse, uncomplicated; F31.9 Bipolar disorder, unspecified; Z88.8 Allergy status to other drugs, medicaments and biological substances; Z91.041 Radiographic dye allergy status; Z91.5 Personal history of self-harm; Z81.1 Family history of alcohol abuse and dependence; Z87.820 Personal history of traumatic brain injury; Z23 Encounter for immunization; Z59.0 Homelessness; Z72.0 Tobacco use
CPT/HCPCS: 36415; 70450; 71010; 74177; 80048; 80053; 80164; 80307; 80320; 80329; 80342; 81003; 82140; 82550; 83605; 83735; 84146; 84443; 85025; 86703; 86704; 86803; 87040; 87641; 90686; 93005; 94640; 94660; 94760; 95819; A9270-GY; G0480; J1200; J1630; J2060; J2310; J2426; J3475; Q9967

== ENCOUNTER 2019-09-10 18:34 | Inpatient (IN) ==
[2019-09-10] MEDS ORDERED: NS 0.9% 1000 ml BAG 1,000 ML IV ONE (18:44)
[2019-09-10 19:13] LABS: Hematocrit 36 % (42-52); Hemoglobin 11.6 g/dL (14.0-18.0); Mean Corpuscular HGB Conc 32 g/dL (31-36); Mean Corpuscular Hemoglobin 23 pg (27-31); Mean Corpuscular Volume 72 fL (80-94); Mean Platelet Volume 8.1 fL (7.4-10.4); Platelet Count 275 10^3/uL (150-450); Red Blood Count 5.03 10^6 /uL (4.18-5.48); Red Cell Distribution Width 16 % (10-15); White Blood Count 8.7 10^3/uL (3.5-10.8)
[2019-09-10 19:25] LABS: ALT 11 U/L (7-52); AST 16 U/L (13-39); Albumin 4.5 g/dL (3.2-5.2); Albumin/Globulin Ratio 1.6 (1-3); Alkaline Phosphatase 57 U/L (34-104); Anion Gap 8 mmol/L (2-11); BUN/Creatinine Ratio 10.5 (8-20); Blood Urea Nitrogen 9 mg/dL (6-24); CO2 Carbon Dioxide 27 mmol/L (22-32); Calcium 9.8 mg/dL (8.6-10.3); Chloride 105 mmol/L (101-111); EGFR African American 134.6 (>60); EGFR Non-African American 111.2 (>60); Globulin 2.8 g/dL (2-4); Glucose 98 mg/dL (70-100); Potassium 3.5 mmol/L (3.5-5.0); Sodium 140 mmol/L (135-145); Total Protein 7.3 g/dL (6.4-8.9)
[2019-09-10 19:34] LABS: ABS Lymphocytes 2.1 10^3/ul (1.0-4.8); ABS Monocytes 0.8 10^3/ul (0-0.8); Eosinophil % 0.5 %; Lymphocyte % 24.4 %
[2019-09-10 20:01] LABS: Acetaminophen < 15 mcg/mL; Alcohol, S < 10 mg/dL (<10); Salicylate < 2.50 mg/dL (<30)
[2019-09-10] MEDS ORDERED: Pyridoxine INJ 100 MG/ML VIAL IV ONE (21:46)
[2019-09-10] MEDS ORDERED: Thiamine 100 MG/ML 2 ml VIAL (200 mg) IV ONE (21:47)
[2019-09-10] MEDS ORDERED: FOMEPIZOLE IV ONE (22:00)
[2019-09-10] MEDS ORDERED: NS 0.9% IV ONE ×2 (22:00→22:30)
[2019-09-10] MEDS ORDERED: NS 0.9% IVPB SCH (22:30)
[2019-09-10] MEDS ORDERED: FOLIC ACID IVPB SCH (22:30)
[2019-09-10] MEDS ORDERED: FOLIC ACID IV ONE (22:30)
[2019-09-10] MEDS ORDERED: NS 0.9% 1000 ml BAG 1,000 ML IV SCH (23:00)
[2019-09-10] MEDS ORDERED: Thiamine IV 100 MG in NS 0.9% 50 ML IV ONE (23:00)
[2019-09-10] MEDS ORDERED: Ondansetron 4 mg VIAL 2 MG/ML 2 ml VIAL IV PRN (23:09)
[2019-09-10] MEDS ORDERED: Nicotine Lozenge mini 2 MG LOZNG.MINI MT PRN (23:10)
[2019-09-10 23:47] LABS: Total Iron Binding Capacity 430 mcg/dL (250-450); Transferrin 307 mg/dL (203-362)
[2019-09-10 23:58] LABS: TSH (Thyroid Stimulating Horm) 2.28 mcIU/mL (0.34-5.60)
[2019-09-11 00:04] LABS: Ferritin 7.4 ng/mL (24-336)
[2019-09-11 00:13] LABS: % Iron Saturation 5 % (15-55); Iron < 20 ug/dL (50-212)
[2019-09-11 01:20] LABS: Urine Appearance Cloudy; Urine Bilirubin Negative (Negative); Urine Blood Negative (Negative); Urine Color Yellow; Urine Glucose Negative (Negative); Urine Ketones Negative (Negative); Urine Nitrite Negative (Negative); Urine Protein Negative (Negative); Urine Specific Gravity 1.015 (1.010-1.030); Urine Urobilinogen Negative (Negative)
[2019-09-11 01:31] LABS: Urine Benzodiazepine Screen None Detected (None Detect); Urine Opiates Screen None Detected (None Detect)
[2019-09-11] MEDS ORDERED: Folic Acid 1 mg SYRINGE 0.2 ML SYRINGE IV SCH ×2 (02:00→09:00)
[2019-09-11] MEDS: D5W IVPB SCH ×5 (03:54→16:19)
[2019-09-11] MEDS: LEUCOVORIN CALCIUM IVPB SCH ×5 (03:54→16:19)
[2019-09-11] MEDS: Thiamine 100 MG/ML 2 ml VIAL 100 MG in NS 0.9% 50 ML 50 ML IV SCH ×2 (05:23→09:54)
[2019-09-11] MEDS: Pyridoxine INJ 100 MG/ML VIAL IV SCH ×2 (06:11→13:03)
[2019-09-11] MEDS ORDERED: Divalproex DR 500 mg TAB(*) PO SCH (09:00)
[2019-09-11] MEDS ORDERED: FOMEPIZOLE IV SCH (10:00)
[2019-09-11] MEDS ORDERED: NS 0.9% IV SCH (10:00)
[2019-09-11 10:43] LABS: ABS Basophils 0.1 10^3/ul (0-0.2); ABS Eosinophils 0.1 10^3/ul (0-0.6); ABS Lymphocytes 2.1 10^3/ul (1.0-4.8); ABS Monocytes 0.6 10^3/ul (0-0.8); Albumin 3.7 g/dL (3.2-5.2); Albumin/Globulin Ratio 1.6 (1-3); BUN/Creatinine Ratio 11.3 (8-20); Calcium 8.8 mg/dL (8.6-10.3); EGFR African American 167.9 (>60); EGFR Non-African American 138.7 (>60); Eosinophil % 1.7 %; Globulin 2.3 g/dL (2-4); Hematocrit 34 % (42-52); Hemoglobin 10.8 g/dL (14.0-18.0); Lymphocyte % 39.7 %; Mean Corpuscular HGB Conc 32 g/dL (31-36); Mean Corpuscular Hemoglobin 23 pg (27-31); Mean Corpuscular Volume 71 fL (80-94); Mean Platelet Volume 8.1 fL (7.4-10.4); Platelet Count 225 10^3/uL (150-450); Red Blood Count 4.75 10^6 /uL (4.18-5.48); Red Cell Distribution Width 16 % (10-15); Total Bilirubin 0.3 mg/dL (0.2-1.0); White Blood Count 5.3 10^3/uL (3.5-10.8)
[2019-09-11 16:49] VITALS: BP 122/79
[2019-09-12 22:30] LABS: Acetone Level Not Detected; Ethanol Not Detected; Isopropanol Not Detected
== END 2019-09-11 18:20 | disposition home or self-care (01) | DRG 816 ==
LOC: ED 18:34 → MEDTELE 23:41
PROVIDERS: ADMIT Internal Medicine; ATTEND Internal Medicine

== ENCOUNTER 2019-10-21 23:33 | Inpatient (IN) ==
[2019-10-22 00:23] LABS: ABS Eosinophils 0.1 10^3/ul (0-0.6); ABS Lymphocytes 1.4 10^3/ul (1.0-4.8); Eosinophil % 1.5 %; Hematocrit 34 % (42-52); Hemoglobin 11.1 g/dL (14.0-18.0); Lymphocyte % 25.2 %; Mean Corpuscular HGB Conc 32 g/dL (31-36); Mean Corpuscular Hemoglobin 23 pg (27-31); Mean Corpuscular Volume 70 fL (80-94); Nucleated Red Blood Cells % 0.1; Platelet Count 212 10^3/uL (150-450); Red Blood Count 4.92 10^6 /uL (4.18-5.48); Red Cell Distribution Width 18 % (10-15); White Blood Count 5.5 10^3/uL (3.5-10.8)
[2019-10-22 00:31] LABS: ALT 111 U/L (7-52); AST 98 U/L (13-39); Albumin 4.1 g/dL (3.2-5.2); Albumin/Globulin Ratio 1.5 (1-3); Alkaline Phosphatase 51 U/L (34-104); Anion Gap 8 mmol/L (2-11); BUN/Creatinine Ratio 19.7 (8-20); Blood Urea Nitrogen 15 mg/dL (6-24); CO2 Carbon Dioxide 25 mmol/L (22-32); Calcium 9.1 mg/dL (8.6-10.3); Chloride 101 mmol/L (101-111); EGFR African American 155.2 (>60); EGFR Non-African American 128.3 (>60); Globulin 2.8 g/dL (2-4); Glucose 100 mg/dL (70-100); Potassium 3.4 mmol/L (3.5-5.0); Sodium 134 mmol/L (135-145); Total Protein 6.9 g/dL (6.4-8.9)
[2019-10-22 00:52] LABS: Acetaminophen < 15 mcg/mL; Alcohol, S < 10 mg/dL (<10); Salicylate < 2.50 mg/dL (<30)
[2019-10-22 01:08] LABS: TSH (Thyroid Stimulating Horm) 2.29 mcIU/mL (0.34-5.60)
[2019-10-22] MEDS ORDERED: diPHENhydraMINE 25 mg TAB PO ONE (09:55)
[2019-10-22 09:56] LABS: Urine Appearance Clear; Urine Bilirubin Negative (Negative); Urine Blood Negative (Negative); Urine Color Yellow; Urine Glucose Negative (Negative); Urine Ketones 1+ (Negative); Urine Nitrite Negative (Negative); Urine Protein Negative (Negative); Urine Specific Gravity 1.017 (1.010-1.030); Urine Urobilinogen Negative (Negative)
[2019-10-22 10:26] LABS: Urine Benzodiazepine Screen None Detected (None Detect); Urine Opiates Screen None Detected (None Detect)
[2019-10-22] MEDS ORDERED: Al Hydrox/Mg Hydrox/Simet LIQ 30 ML UDC PO PRN (11:34)
[2019-10-23] MEDS ORDERED: Buprenorp/Nalox 8-2 MG FILM SL FILM SCH (12:00)
[2019-10-23] MEDS ORDERED: Albuterol HFA INHALER 8 gm MDI INH PRN (16:27)
[2019-10-23] MEDS ORDERED: LORazepam 1 mg TAB (*) PO PRN (16:34)
[2019-10-23] MEDS: Albuterol 2.5mg/3 ml (0.083%) NEB.SOLN INH SCH (21:56)
[2019-10-23] MEDS: Mometasone/Formoter 100/5 MDI INH SCH (21:56)
[2019-10-24] MEDS ORDERED: Buprenorp/Nalox 8-2 MG FILM SL FILM SCH (09:00)
[2019-10-24] MEDS: Albuterol 2.5mg/3 ml (0.083%) NEB.SOLN INH SCH ×2 (12:49→20:48)
[2019-10-24] MEDS: Mometasone/Formoter 100/5 MDI INH SCH ×2 (12:49→20:48)
[2019-10-24] MEDS: Buprenorp/Nalox 4-1 MG FILM SL FILM SCH (12:49)
[2019-10-25] MEDS: Mometasone/Formoter 100/5 MDI INH SCH ×2 (10:04→19:59)
[2019-10-25] MEDS: Albuterol 2.5mg/3 ml (0.083%) NEB.SOLN INH SCH ×2 (10:06→19:59)
[2019-10-25] MEDS: Buprenorp/Nalox 4-1 MG FILM SL FILM SCH (12:22)
[2019-10-25] MEDS ORDERED: LORazepam 1 mg TAB (*) PO PRN (15:12)
[2019-10-26] MEDS: Mometasone/Formoter 100/5 MDI INH SCH (10:33)
[2019-10-26] MEDS: Buprenorp/Nalox 4-1 MG FILM SL FILM SCH (10:33)
[2019-10-26] MEDS: Albuterol 2.5mg/3 ml (0.083%) NEB.SOLN INH SCH (10:37)
[2019-10-26 10:38] VITALS: BP 130/76
== END 2019-10-26 15:35 | disposition home or self-care (01) | DRG 753 ==
LOC: EDBD → ED 23:33 → MERGE 23:33 → BSU 10-22 11:34
PROVIDERS: ADMIT Psychiatry & Neurology Psychiatry; ATTEND Psychiatry & Neurology Psychiatry

== ENCOUNTER 2019-11-30 16:09 | Inpatient (IN) ==
[2019-11-30 18:03] LABS: ALT 234 U/L (7-52); AST 168 U/L (13-39); Albumin 3.8 g/dL (3.2-5.2); Albumin/Globulin Ratio 1.5 (1-3); Alkaline Phosphatase 79 U/L (34-104); Anion Gap 4 mmol/L (2-11); BUN/Creatinine Ratio 18.8 (8-20); Blood Urea Nitrogen 12 mg/dL (6-24); CO2 Carbon Dioxide 28 mmol/L (22-32); Chloride 106 mmol/L (101-111); EGFR African American 189.2 (>60); EGFR Non-African American 156.4 (>60); Globulin 2.6 g/dL (2-4); Glucose 110 mg/dL (70-100); Sodium 138 mmol/L (135-145); Total Protein 6.4 g/dL (6.4-8.9)
[2019-11-30 18:07] LABS: ABS Eosinophils 0.1 10^3/ul (0-0.6); ABS Lymphocytes 1.7 10^3/ul (1.0-4.8); ABS Monocytes 0.7 10^3/ul (0-0.8); ABS Neutrophils 6.2 10^3/ul (1.5-7.7); Eosinophil % 1.5 %; Hematocrit 34 % (42-52); Lymphocyte % 19.6 %; Mean Corpuscular HGB Conc 33 g/dL (31-36); Mean Corpuscular Hemoglobin 23 pg (27-31); Mean Corpuscular Volume 70 fL (80-94); Mean Platelet Volume 8.5 fL (7.4-10.4); Nucleated Red Blood Cells % 0.1; Platelet Count 241 10^3/uL (150-450); Red Blood Count 4.79 10^6 /uL (4.18-5.48); Red Cell Distribution Width 20 % (10-15); White Blood Count 8.8 10^3/uL (3.5-10.8)
[2019-11-30 18:41] LABS: Acetaminophen < 15 mcg/mL; Alcohol, S < 10 mg/dL (<10); Salicylate < 2.50 mg/dL (<30)
[2019-11-30 19:47] LABS: Hepatitis B Surface Antigen Nonreactive (Nonreactive)
[2019-11-30 19:52] LABS: Hepatitis A Ab IgM Negative (Negative)
[2019-11-30 19:53] LABS: Hepatitis B Core IgM Nonreactive (Nonreactive)
[2019-11-30 20:46] LABS: Urine Appearance Clear; Urine Bilirubin Negative (Negative); Urine Blood Negative (Negative); Urine Color Amber; Urine Glucose Negative (Negative); Urine Ketones Negative (Negative); Urine Nitrite Negative (Negative); Urine Protein 2+(100 mg/dL) (Negative); Urine Urobilinogen Negative (Negative)
[2019-11-30 20:49] LABS: Hepatitis C Antibody Reactive (Negative)
[2019-11-30 20:56] LABS: Urine Bacteria Absent (Absent); Urine Red Blood Cell Trace(0-2/hpf) (Absent); Urine Squamous Epithelial Cell Present (Absent); Urine White Blood Cell Trace(0-5/hpf) (Absent)
[2019-11-30 21:02] LABS: Urine Benzodiazepine Screen None Detected (None Detect); Urine Cannabinoids Screen None Detected (None Detect); Urine Opiates Screen Presumptive Positive (None Detect)
[2019-11-30 22:28] LABS: TSH Ultra Thyroid Stim Horm 1.93 mcIU/mL (0.34-5.60)
[2019-12-01] MEDS ORDERED: Al Hydrox/Mg Hydrox/Simet LIQ 30 ML UDC PO PRN (00:21)
[2019-12-01 08:33] LABS: HDL Cholesterol 24.6 mg/dL
[2019-12-01] MEDS: Vitamin THERAPEUTIC TAB PO SCH (13:49)
[2019-12-02] MEDS: Vitamin THERAPEUTIC TAB PO SCH (10:00)
[2019-12-02 19:29] VITALS: BP 109/55
[2019-12-03] MEDS ORDERED: cloNIDine TAB* 0.1 MG ADDITIONAL PRN DOSES DAYS 1-4 PO (09:00)
[2019-12-03] MEDS: Vitamin THERAPEUTIC TAB PO SCH (10:13)
[2019-12-03] MEDS ORDERED: Loperamide CAP* 2 MG AFTER EACH LOOSE STOOL MDD 16 MG PO PRN (15:20)
[2019-12-03] MEDS ORDERED: Carisoprodol TAB* 350 MG Q6H PRN PO (15:20)
[2019-12-03] MEDS ORDERED: Loperamide CAP* 4 MG INITIAL PRN DOSE PO (15:20)
[2019-12-03] MEDS ORDERED: Ibuprofen TAB* 400 MG Q6H PRN PO (15:20)
[2019-12-03] MEDS ORDERED: CLONIDINE PO ONE (16:00)
[2019-12-03] MEDS: cloNIDine TAB* 0.1 MG Q4H DAYS 1 TO 4 PO SCH ×3 (16:48→22:00)
[2019-12-04] MEDS: cloNIDine TAB* 0.1 MG Q4H DAYS 1 TO 4 PO SCH ×4 (02:00→18:16)
[2019-12-04] MEDS: Vitamin THERAPEUTIC TAB PO SCH (14:01)
[2019-12-05] MEDS: cloNIDine TAB* 0.1 MG Q4H DAYS 1 TO 4 PO SCH ×4 (00:19→22:29)
[2019-12-05] MEDS: Vitamin THERAPEUTIC TAB PO SCH (15:18)
[2019-12-06] MEDS: cloNIDine TAB* 0.1 MG Q4H DAYS 1 TO 4 PO SCH ×3 (02:53→09:32)
[2019-12-06] MEDS: Vitamin THERAPEUTIC TAB PO SCH (09:34)
[2019-12-07] MEDS ORDERED: cloNIDine TAB* DOSING for DAY 5 PO SCH (06:00)
[2019-12-08] MEDS ORDERED: cloNIDine TAB* DOSING for DAY 6 PO SCH (06:00)
[2019-12-09] MEDS ORDERED: cloNIDine TAB* DOSING FOR DAY 7 PO SCH (09:00)
== END 2019-12-06 13:25 | disposition home or self-care (01) | DRG 773 ==
LOC: ED 16:09 → BSU 21:23
PROVIDERS: ADMIT Psychiatry & Neurology Addiction Psychiatry; ATTEND Psychiatry & Neurology Psychiatry

== ENCOUNTER 2020-02-29 11:25 | Inpatient (IN) ==
[2020-02-29] MEDS ORDERED: NS 0.9% 1000 ml BAG 1,000 ML IV ONE ×2 (13:02→17:31)
[2020-02-29] MEDS ORDERED: diPHENhydraMINE IV 50 MG/ML 1 ml VIAL (BENADRYL) IM ONE (13:23)
[2020-02-29 15:24] LABS: ABS Basophils 0.1 10^3/ul (0-0.2); ABS Lymphocytes 1.2 10^3/ul (1.0-4.8); ABS Monocytes 0.9 10^3/ul (0-0.8); ABS Neutrophils 5.3 10^3/ul (1.5-7.7); Eosinophil % 0.1 %; Hematocrit 36 % (42-52); Hemoglobin 11.7 g/dL (14.0-18.0); Mean Corpuscular HGB Conc 33 g/dL (31-36); Mean Corpuscular Hemoglobin 23 pg (27-31); Mean Corpuscular Volume 71 fL (80-94); Mean Platelet Volume 8.3 fL (7.4-10.4); Nucleated Red Blood Cells % 0.1; Platelet Count 289 10^3/uL (150-450); Red Cell Distribution Width 19 % (10-15); White Blood Count 7.4 10^3/uL (3.5-10.8)
[2020-02-29 15:49] LABS: Albumin 3.6 g/dL (3.2-5.2); Albumin/Globulin Ratio 1.3 (1-3); BUN/Creatinine Ratio 10.9 (8-20); C Reactive Protein 5.18 mg/L (<8.01); Calcium 8.4 mg/dL (8.6-10.3); EGFR African American 225.4 (>60); EGFR Non-African American 186.3 (>60); Globulin 2.8 g/dL (2-4); Total Bilirubin 1.6 mg/dL (0.2-1.0); Total Protein 6.4 g/dL (6.4-8.9)
[2020-02-29] MEDS ORDERED: Iodixanol (CONTRAST) 320 MG/ML 100 ML SDV IV ONE (15:55)
[2020-02-29 16:41] LABS: Hepatitis B Surface Antigen Nonreactive (Nonreactive)
[2020-02-29 16:46] LABS: Hepatitis A Ab IgM Reactive (Negative)
[2020-02-29 16:47] LABS: Hepatitis B Core IgM Nonreactive (Nonreactive)
[2020-02-29] MEDS ORDERED: Piperacillin/Tazobac ADVAN 3.375 GM in NS 0.9% 100 ml BAG 100 ML IVPB ONE (17:31)
[2020-02-29] MEDS ORDERED: NS 0.9% 1000 ml BAG 1,000 ML IV SCH (18:45)
[2020-02-29 18:47] LABS: Hepatitis C Antibody Reactive (Negative)
[2020-02-29] MEDS ORDERED: Naloxone Nasal Spray 4 MG/0.1 ML NASAL.SPR INTRANASAL PRN (18:57)
[2020-02-29] MEDS ORDERED: Zosyn per Pharmacy NOTE FOLLOW UP SCH (19:00)
[2020-02-29] MEDS ORDERED: Buprenorp/Nalox 8-2 MG FILM SL FILM SCH (21:00)
[2020-02-29] MEDS: ZOSYN 3.375 GM Q8H per EXTENDED INFUSION IV SCH (22:14)
[2020-02-29] MEDS: Buprenorp/Nalox 8-2 MG FILM SL FILM SCH (22:17)
[2020-03-01 03:06] LABS: HIV 4th Generation Nonreactive (Nonreactive)
[2020-03-01] MEDS: ZOSYN 3.375 GM Q8H per EXTENDED INFUSION IV SCH ×3 (05:54→20:19)
[2020-03-01] MEDS: Buprenorp/Nalox 8-2 MG FILM SL FILM SCH ×3 (10:46→20:21)
[2020-03-01 12:10] LABS: Urine Benzodiazepine Screen None Detected (None Detect); Urine Cannabinoids Screen None Detected (None Detect); Urine Opiates Screen None Detected (None Detect)
[2020-03-01] MEDS: Polyethylene Glycol 3350 17 GM PACKET PO SCH (13:28)
[2020-03-01] MEDS ORDERED: NS 0.9% 1000 ml BAG 1,000 ML IV SCH (14:45)
[2020-03-02] MEDS: ZOSYN 3.375 GM Q8H per EXTENDED INFUSION IV SCH ×3 (04:25→20:48)
[2020-03-02 06:38] LABS: AST 689 U/L (13-39); Albumin 3.1 g/dL (3.2-5.2); Albumin/Globulin Ratio 1.1 (1-3); Alkaline Phosphatase 112 U/L (34-104); Anion Gap 4 mmol/L (2-11); Blood Urea Nitrogen 2 mg/dL (6-24); CO2 Carbon Dioxide 26 mmol/L (22-32); Calcium 8.1 mg/dL (8.6-10.3); Chloride 105 mmol/L (101-111); EGFR African American 251.6 (>60); EGFR Non-African American 207.9 (>60); Globulin 2.8 g/dL (2-4); Glucose 93 mg/dL (70-100); Potassium 3.8 mmol/L (3.5-5.0); Sodium 135 mmol/L (135-145); Total Protein 5.9 g/dL (6.4-8.9)
[2020-03-02 06:42] LABS: ABS Lymphocytes 1.5 10^3/ul (1.0-4.8); ABS Monocytes 0.7 10^3/ul (0-0.8); ABS Neutrophils 3.8 10^3/ul (1.5-7.7); Eosinophil % 0.5 %; Hematocrit 36 % (42-52); Hemoglobin 11.5 g/dL (14.0-18.0); Lymphocyte % 25.2 %; Mean Corpuscular HGB Conc 32 g/dL (31-36); Mean Corpuscular Hemoglobin 23 pg (27-31); Mean Corpuscular Volume 71 fL (80-94); Mean Platelet Volume 7.2 fL (7.4-10.4); Platelet Count 258 10^3/uL (150-450); Red Blood Count 5.06 10^6 /uL (4.18-5.48); Red Cell Distribution Width 19 % (10-15); White Blood Count 6.1 10^3/uL (3.5-10.8)
[2020-03-02 07:07] LABS: ALT 1025 U/L (7-52)
[2020-03-02 07:33] LABS: % Iron Saturation 7 % (15-55); Iron 23 ug/dL (50-212); Total Iron Binding Capacity 308 mcg/dL (250-450); Transferrin 220 mg/dL (203-362); Unsaturated Iron Binding < 293 ug/dL
[2020-03-02 07:49] LABS: TSH Ultra Thyroid Stim Horm 2.44 mcIU/mL (0.34-5.60)
[2020-03-02 07:56] LABS: Ferritin 45.7 ng/mL (24-336)
[2020-03-02 08:00] LABS: Folate > 20.00 ng/mL (>3.99)
[2020-03-02 08:01] LABS: Vitamin B12 793 pg/mL (180-914)
[2020-03-02] MEDS: Polyethylene Glycol 3350 17 GM PACKET PO SCH (09:33)
[2020-03-02] MEDS: Buprenorp/Nalox 8-2 MG FILM SL FILM SCH ×3 (11:09→20:49)
[2020-03-02] MEDS ORDERED: Iron Sucrose 200 MG in NS 0.9% 100 ml IVPB SCH (12:00)
[2020-03-02] MEDS ORDERED: Iron Sucrose 20 MG/ML 5 ML VIAL IVPB SCH (12:00)
[2020-03-02] MEDS ORDERED: Prochlorperazine 5 mg/ml 2 ml VIAL (10 mg) IV PRN (16:43)
[2020-03-03] MEDS: ZOSYN 3.375 GM Q8H per EXTENDED INFUSION IV SCH (05:10)
[2020-03-03 08:01] VITALS: BP 128/72
[2020-03-03] MEDS: Polyethylene Glycol 3350 17 GM PACKET PO SCH (11:12)
[2020-03-03] MEDS: Buprenorp/Nalox 8-2 MG FILM SL FILM SCH (11:12)
== END 2020-03-03 11:40 | disposition home or self-care (01) ==
LOC: ED 11:25 → MED 18:43
PROVIDERS: ADMIT Internal Medicine; ATTEND Internal Medicine

== ENCOUNTER 2020-07-15 13:45 | Inpatient (IN) ==
[2020-07-15] MEDS ORDERED: NS 0.9% 1000 ml BAG 1,000 ML IV ONE ×2 (13:53→16:46)
[2020-07-15] MEDS ORDERED: Lorazepam PYXIS KEY ONE (14:10)
[2020-07-15] MEDS ORDERED: LORazepam 2 mg VIAL 1 ml ONE ×2 (14:11→22:19)
[2020-07-15] MEDS ORDERED: Lorazepam PYXIS KEY PRN ×3 (14:14→22:28)
[2020-07-15] MEDS ORDERED: LORazepam 2 mg VIAL 1 ml IM ONE (14:14)
[2020-07-15 14:38] LABS: ABS Basophils 0.1 10^3/ul (0-0.2); ABS Eosinophils 0.2 10^3/ul (0-0.6); ABS Lymphocytes 3.1 10^3/ul (1.0-4.8); ABS Neutrophils 4.8 10^3/ul (1.5-7.7); Eosinophil % 2.5 %; Hematocrit 37 % (42-52); Hemoglobin 12.2 g/dL (14.0-18.0); Lymphocyte % 34.1 %; Mean Corpuscular HGB Conc 33 g/dL (31-36); Mean Corpuscular Hemoglobin 25 pg (27-31); Mean Corpuscular Volume 77 fL (80-94); Mean Platelet Volume 7.1 fL (7.4-10.4); Nucleated Red Blood Cells % 0.3; Platelet Count 325 10^3/uL (150-450); Red Blood Count 4.85 10^6 /uL (4.18-5.48); Red Cell Distribution Width 16 % (10-15); White Blood Count 9.1 10^3/uL (3.5-10.8)
[2020-07-15 15:00] LABS: ALT 61 U/L (7-52); AST 38 U/L (13-39); Albumin 4.1 g/dL (3.2-5.2); Albumin/Globulin Ratio 1.3 (1-3); Alkaline Phosphatase 53 U/L (34-104); Anion Gap 12 mmol/L (2-11); BUN/Creatinine Ratio 24.3 (8-20); Blood Urea Nitrogen 18 mg/dL (6-24); CO2 Carbon Dioxide 20 mmol/L (22-32); Calcium 9.6 mg/dL (8.6-10.3); Chloride 104 mmol/L (101-111); Creatine Kinase 209 U/L (10-223); EGFR African American 158.6 (>60); EGFR Non-African American 131.1 (>60); Globulin 3.2 g/dL (2-4); Glucose 92 mg/dL (70-100); Potassium 3.8 mmol/L (3.5-5.0); Sodium 136 mmol/L (135-145); Total Protein 7.3 g/dL (6.4-8.9)
[2020-07-15 15:46] LABS: Acetaminophen < 15 mcg/mL; Alcohol, S < 10 mg/dL (<10); Salicylate < 2.50 mg/dL (<30)
[2020-07-15] MEDS ORDERED: Valproic Acid IV 1,000 MG in NS 0.9% 100 ml BAG 100 ML IVPB ONE (17:18)
[2020-07-15] MEDS ORDERED: NS 0.9% 100 ml BAG 100 ML ONE (17:31)
[2020-07-15] MEDS ORDERED: LORazepam 2 mg VIAL 1 ml IV PUSH PRN ×2 (20:49→22:28)
[2020-07-15 21:00] LABS: Urine Appearance Clear; Urine Bilirubin Negative (Negative); Urine Blood Negative (Negative); Urine Color Yellow; Urine Glucose Negative (Negative); Urine Ketones Trace (Negative); Urine Nitrite Negative (Negative); Urine Protein Negative (Negative); Urine Specific Gravity 1.027 (1.010-1.030); Urine Urobilinogen Negative (Negative)
[2020-07-15 21:26] LABS: Urine Benzodiazepine Screen None Detected (None Detect); Urine Cannabinoids Screen None Detected (None Detect); Urine Opiates Screen None Detected (None Detect)
[2020-07-15] MEDS ORDERED: NS 0.9% 1000 ml BAG 1,000 ML IV SCH (21:30)
[2020-07-16 04:35] LABS: % Iron Saturation 46 % (15-55); Iron 200 ug/dL (50-212); Total Iron Binding Capacity 434 mcg/dL (250-450); Transferrin 310 mg/dL (203-362); Unsaturated Iron Binding 234 ug/dL
[2020-07-16 05:00] LABS: ABS Eosinophils 0.2 10^3/ul (0-0.6); ABS Lymphocytes 2.2 10^3/ul (1.0-4.8); ABS Monocytes 0.6 10^3/ul (0-0.8); ABS Neutrophils 3.3 10^3/ul (1.5-7.7); Eosinophil % 3.6 %; Hematocrit 35 % (42-52); Hemoglobin 11.3 g/dL (14.0-18.0); Lymphocyte % 34.9 %; Mean Corpuscular HGB Conc 32 g/dL (31-36); Mean Corpuscular Hemoglobin 25 pg (27-31); Mean Corpuscular Volume 77 fL (80-94); Mean Platelet Volume 6.8 fL (7.4-10.4); Nucleated Red Blood Cells % 0.1; Platelet Count 257 10^3/uL (150-450); Red Blood Count 4.51 10^6 /uL (4.18-5.48); Red Cell Distribution Width 16 % (10-15); White Blood Count 6.4 10^3/uL (3.5-10.8)
[2020-07-16 05:19] LABS: BUN/Creatinine Ratio 23.6 (8-20); Calcium 8.6 mg/dL (8.6-10.3); EGFR African American 223.4 (>60); EGFR Non-African American 184.6 (>60); Potassium 3.8 mmol/L (3.5-5.0)
[2020-07-16 17:49] LABS: Phosphorus 3.1 mg/dL (2.5-5.0)
[2020-07-16 17:52] LABS: Ferritin 20.4 ng/mL (24-336)
[2020-07-17] MEDS: Lactulose 30 ml UDC PO SCH ×2 (13:00→21:48)
[2020-07-18] MEDS ORDERED: LORazepam 2 mg VIAL 1 ml IM PRN (01:17)
[2020-07-18] MEDS: Lactulose 30 ml UDC PO SCH ×3 (08:44→21:21)
[2020-07-19] MEDS: Lactulose 30 ml UDC PO SCH ×5 (08:20→21:19)
[2020-07-19 08:44] LABS: Hematocrit 37 % (42-52); Hemoglobin 11.8 g/dL (14.0-18.0); Mean Corpuscular HGB Conc 32 g/dL (31-36); Mean Corpuscular Hemoglobin 25 pg (27-31); Mean Corpuscular Volume 78 fL (80-94); Mean Platelet Volume 7.4 fL (7.4-10.4); Platelet Count 256 10^3/uL (150-450); Red Blood Count 4.71 10^6 /uL (4.18-5.48); Red Cell Distribution Width 17 % (10-15); White Blood Count 5.3 10^3/uL (3.5-10.8)
[2020-07-19 09:06] LABS: ALT 60 U/L (7-52); AST 39 U/L (13-39); Albumin 3.8 g/dL (3.2-5.2); Albumin/Globulin Ratio 1.5 (1-3); Alkaline Phosphatase 58 U/L (34-104); Anion Gap 8 mmol/L (2-11); BUN/Creatinine Ratio 14.7 (8-20); Blood Urea Nitrogen 10 mg/dL (6-24); C Reactive Protein < 1.00 mg/L (<8.01); CO2 Carbon Dioxide 26 mmol/L (22-32); Calcium 9.1 mg/dL (8.6-10.3); Chloride 104 mmol/L (101-111); EGFR African American 174.9 (>60); EGFR Non-African American 144.5 (>60); Globulin 2.6 g/dL (2-4); Glucose 107 mg/dL (70-100); Indirect Bilirubin 0.2 mg/dL (0.3-1.0); Magnesium 1.4 mg/dL (1.9-2.7); Potassium 3.6 mmol/L (3.5-5.0); Sodium 138 mmol/L (135-145); Total Protein 6.4 g/dL (6.4-8.9)
[2020-07-19 10:27] LABS: ABS Eosinophils 0.2 10^3/ul (0-0.6); ABS Lymphocytes 2.2 10^3/ul (1.0-4.8); ABS Monocytes 0.6 10^3/ul (0-0.8); ABS Neutrophils 2.3 10^3/ul (1.5-7.7); Eosinophil % 2.9 %; Lymphocyte % 40.9 %; Microcytosis 1+; Nucleated Red Blood Cells % 0.1
[2020-07-19 12:01] LABS: Erythrocyte Sed Rate 2 mm/Hr (0-14)
[2020-07-19] MEDS ORDERED: Magnesium Sulfate IV 3 GM in NS 0.9% 100 ml BAG 100 ML IVPB ONE (20:00)
[2020-07-20 06:32] LABS: Hematocrit 38 % (42-52); Hemoglobin 12.2 g/dL (14.0-18.0); Mean Corpuscular HGB Conc 32 g/dL (31-36); Mean Corpuscular Hemoglobin 25 pg (27-31); Mean Corpuscular Volume 78 fL (80-94); Mean Platelet Volume 7.3 fL (7.4-10.4); Platelet Count 263 10^3/uL (150-450); Red Blood Count 4.83 10^6 /uL (4.18-5.48); Red Cell Distribution Width 16 % (10-15); White Blood Count 5.9 10^3/uL (3.5-10.8)
[2020-07-20 06:48] LABS: Albumin 3.8 g/dL (3.2-5.2); Albumin/Globulin Ratio 1.4 (1-3); BUN/Creatinine Ratio 18.5 (8-20); Calcium 9.3 mg/dL (8.6-10.3); EGFR African American 228.1 (>60); EGFR Non-African American 188.6 (>60); Globulin 2.8 g/dL (2-4); Magnesium 1.5 mg/dL (1.9-2.7); Potassium 4.1 mmol/L (3.5-5.0); Total Bilirubin 0.4 mg/dL (0.2-1.0); Total Protein 6.6 g/dL (6.4-8.9)
[2020-07-20 06:51] LABS: ABS Basophils 0.1 10^3/ul (0-0.2); ABS Eosinophils 0.2 10^3/ul (0-0.6); ABS Lymphocytes 2.5 10^3/ul (1.0-4.8); ABS Monocytes 0.6 10^3/ul (0-0.8); ABS Neutrophils 2.5 10^3/ul (1.5-7.7); Eosinophil % 3.6 %; Nucleated Red Blood Cells % 0.1
[2020-07-20] MEDS: Lactulose 30 ml UDC PO SCH ×3 (09:03→20:22)
[2020-07-21 08:09] LABS: ABS Basophils 0.1 10^3/ul (0-0.2); ABS Eosinophils 0.3 10^3/ul (0-0.6); ABS Lymphocytes 2.6 10^3/ul (1.0-4.8); ABS Monocytes 0.7 10^3/ul (0-0.8); ABS Neutrophils 2.8 10^3/ul (1.5-7.7); Eosinophil % 4.5 %; Hematocrit 39 % (42-52); Hemoglobin 12.7 g/dL (14.0-18.0); Lymphocyte % 40.1 %; Mean Corpuscular HGB Conc 32 g/dL (31-36); Mean Corpuscular Hemoglobin 25 pg (27-31); Mean Corpuscular Volume 78 fL (80-94); Mean Platelet Volume 7.7 fL (7.4-10.4); Platelet Count 264 10^3/uL (150-450); Red Cell Distribution Width 17 % (10-15); White Blood Count 6.4 10^3/uL (3.5-10.8)
[2020-07-21 08:16] LABS: Anion Gap 5 mmol/L (2-11); CO2 Carbon Dioxide 29 mmol/L (22-32); Calcium 9.5 mg/dL (8.6-10.3); Chloride 104 mmol/L (101-111); Magnesium 1.6 mg/dL (1.9-2.7); Potassium 4.1 mmol/L (3.5-5.0); Sodium 138 mmol/L (135-145)
[2020-07-21] MEDS: Lactulose 30 ml UDC PO SCH ×3 (08:19→21:43)
[2020-07-21 08:22] LABS: ALT 83 U/L (7-52); AST 52 U/L (13-39); Albumin/Globulin Ratio 1.4 (1-3); Alkaline Phosphatase 60 U/L (34-104); BUN/Creatinine Ratio 20.3 (8-20); Blood Urea Nitrogen 12 mg/dL (6-24); C Reactive Protein < 1.00 mg/L (<8.01); EGFR Non-African American 170.2 (>60); Globulin 2.9 g/dL (2-4); Glucose 82 mg/dL (70-100); Total Protein 6.9 g/dL (6.4-8.9)
[2020-07-21] MEDS ORDERED: Magnesium Sulf 4 GM/100 ML IV 4,000 MG/100 ML BAG IVPB ONE (10:30)
[2020-07-21] MEDS ORDERED: Diazepam (ANTICONVULSANT) 10 MG RECTAL.GEL PR PRN (21:30)
[2020-07-22] MEDS: Lactulose 30 ml UDC PO SCH ×3 (08:45→23:57)
[2020-07-22 17:01] LABS: Lipase 25 U/L (11.0-82.0)
[2020-07-22 18:53] LABS: ABS Basophils 0.1 10^3/ul (0-0.2); ABS Eosinophils 0.2 10^3/ul (0-0.6); ABS Lymphocytes 2.6 10^3/ul (1.0-4.8); ABS Monocytes 0.9 10^3/ul (0-0.8); ABS Neutrophils 3.5 10^3/ul (1.5-7.7); Hematocrit 36 % (42-52); Lymphocyte % 35.9 %; Mean Corpuscular HGB Conc 33 g/dL (31-36); Mean Corpuscular Hemoglobin 26 pg (27-31); Mean Corpuscular Volume 78 fL (80-94); Mean Platelet Volume 7.5 fL (7.4-10.4); Nucleated Red Blood Cells % 0.1; Platelet Count 249 10^3/uL (150-450); Red Blood Count 4.65 10^6 /uL (4.18-5.48); Red Cell Distribution Width 17 % (10-15); White Blood Count 7.2 10^3/uL (3.5-10.8)
[2020-07-22] MEDS ORDERED: LORazepam 2 mg VIAL 1 ml ONE (18:59)
[2020-07-22] MEDS ORDERED: Lorazepam PYXIS KEY ONE (18:59)
[2020-07-22] MEDS ORDERED: Lorazepam PYXIS KEY PRN ×2 (19:00→19:16)
[2020-07-22] MEDS ORDERED: LORazepam 2 mg VIAL 1 ml IV PUSH ONE (19:00)
[2020-07-22 19:16] LABS: INR 0.97 (0.82-1.09)
[2020-07-22] MEDS ORDERED: LORazepam 2 mg VIAL 1 ml IV PUSH PRN (19:16)
[2020-07-22 19:24] LABS: ALT 82 U/L (7-52); AST 46 U/L (13-39); Albumin/Globulin Ratio 1.5 (1-3); Alkaline Phosphatase 77 U/L (34-104); Anion Gap 7 mmol/L (2-11); BUN/Creatinine Ratio 16.9 (8-20); Blood Urea Nitrogen 12 mg/dL (6-24); C Reactive Protein < 1.00 mg/L (<8.01); CO2 Carbon Dioxide 27 mmol/L (22-32); Calcium 9.5 mg/dL (8.6-10.3); Chloride 105 mmol/L (101-111); EGFR African American 166.4 (>60); EGFR Non-African American 137.5 (>60); Globulin 2.7 g/dL (2-4); Glucose 95 mg/dL (70-100); Magnesium 1.7 mg/dL (1.9-2.7); Potassium 4.2 mmol/L (3.5-5.0); Sodium 139 mmol/L (135-145); Total Protein 6.7 g/dL (6.4-8.9)
[2020-07-22] MEDS ORDERED: NS 0.9% 1000 ml BAG 1,000 ML IV ONE (19:34)
[2020-07-22] MEDS ORDERED: Magnesium Sulfate IV 3 GM in NS 0.9% 100 ml BAG 100 ML IVPB ONE (19:34)
[2020-07-22] MEDS ORDERED: NS 0.9% 1000 ml BAG 1,000 ML IV SCH (20:45)
[2020-07-22 21:44] LABS: Prolactin 17.1 ng/mL (1.0-20.0)
[2020-07-23] MEDS: Lactulose 30 ml UDC PO SCH ×3 (10:02→21:34)
[2020-07-23 11:22] LABS: Hematocrit 37 % (42-52); Hemoglobin 11.9 g/dL (14.0-18.0); Mean Corpuscular HGB Conc 32 g/dL (31-36); Mean Corpuscular Hemoglobin 25 pg (27-31); Mean Corpuscular Volume 79 fL (80-94); Mean Platelet Volume 7.6 fL (7.4-10.4); Platelet Count 240 10^3/uL (150-450); Red Blood Count 4.72 10^6 /uL (4.18-5.48); Red Cell Distribution Width 16 % (10-15)
[2020-07-23 11:37] LABS: Albumin 3.8 g/dL (3.2-5.2); Albumin/Globulin Ratio 1.4 (1-3); BUN/Creatinine Ratio 17.5 (8-20); Calcium 9.4 mg/dL (8.6-10.3); EGFR Non-African American 157.8 (>60); Globulin 2.7 g/dL (2-4); Potassium 4.2 mmol/L (3.5-5.0); Total Bilirubin 0.4 mg/dL (0.2-1.0); Total Protein 6.5 g/dL (6.4-8.9)
[2020-07-23] MEDS ORDERED: Simethicone SUSP ORALSYR 66.66 MG/ML PO PRN (11:59)
[2020-07-23] MEDS ORDERED: Phenytoin 100 mg ER CAP PO ONE (13:30)
[2020-07-23] MEDS: NS 0.9% 1000 ml BAG 1,000 ML IV SCH (21:35)
[2020-07-24] MEDS: NS 0.9% 1000 ml BAG 1,000 ML IV SCH ×3 (03:37→20:41)
[2020-07-24 07:51] LABS: Magnesium 1.5 mg/dL (1.9-2.7); Phenytoin 4.6 mcg/mL (10-20)
[2020-07-24] MEDS: Phenytoin 100 mg ER CAP PO SCH (09:37)
[2020-07-24] MEDS: Lactulose 30 ml UDC PO SCH ×3 (09:38→20:40)
[2020-07-24] MEDS ORDERED: Magnesium Sulfate 2 gm BAG 2 GM/50 ML BAG IVPB ONE (11:05)
[2020-07-25] MEDS: NS 0.9% 1000 ml BAG 1,000 ML IV SCH (03:12)
[2020-07-25] MEDS: Lactulose 30 ml UDC PO SCH (09:54)
[2020-07-25] MEDS: Phenytoin 100 mg ER CAP PO SCH (09:55)
[2020-07-25 12:03] VITALS: BP 129/52
== END 2020-07-25 13:55 | disposition left against medical advice (07) | DRG 53 ==
LOC: ED 13:45 → MEDTELE 20:18 → MED 07-21 03:55
PROVIDERS: ADMIT Internal Medicine; ATTEND Internal Medicine